=== PATIENT | female | born 1950 | race Caucasian/White ===

== ENCOUNTER 2016-08-11 22:02 | Inpatient (IN) | payer MEDICARE, OTHER ==
[~2016-08-11] VITALS: Ht 154.9 cm; Wt 78.9 kg
[2016-08-11 22:17] LABS: BASOPHILS % (AUTO) 0.6 % (0-3); EOSINOPHILS % (AUTO) 3.2 % (0-5); Mean Corpuscular Hemoglobin 30.7 pg (27.0-35.0); Mean Corpuscular Volume 97.9 fL (81-100); NEUTROPHILS % (AUTO) 38.5 % (40-74); Platelet Count 474 bil/L (150-400)
[2016-08-11] MEDS ORDERED: 0.9% Sodium Chloride 1,000 ML IV ONE (22:21)
--- NOTE | 2016-08-11 22:21 | ABG ---
DateTimeAnalyzed 22:14:00 -_ pH ____7.074 - 7.350 7.450 pCO2 ___91.6__ -mmHg 35.0 45.0 pO2 134 -mmHg 69.0 116 HCO3- ___25.5__ -mmol/L 22.0 26.0 ABE ___-6.5__ -mmol/L -2.0 2.0 tHb ___11.7__ -g/dL O2Hb ___95.2__ -% COHb ____0.0__ -% MetHb ____1.5__ -% sO2 ___96.7__ -% FIO2 ___48.0__ -% Drawn By MM - Date/Time Notified____ 22:21:00 -_ Spontaneous_RR ___24.0__ -b/min Liter_Flow ____7.0__ -L/min Oxygen Device 1 NEBULIZER - Notified By MM - Notified Whom LEIBRANDT, KIERAN -___ B 761 -mmHg tO2 ___15.8__ -Vol% Dino test N/A -
[2016-08-11] MEDS ORDERED: levoFLOXacin Inj 750 MG in IV Premix 1 EACH IV ONE (22:25)
[2016-08-11] MEDS ORDERED: MethylprednisoLONE Sodium Succinate 62.5 mg/mL 2 mL Inj IVPUSH ONE (22:25)
[2016-08-11] MEDS ORDERED: Albuterol-Ipratropium 3 mL Inhalation Solution NEB ONE (22:25)
[2016-08-11 22:26] VITALS: BP 160/112; PULSE 139; RESP 26; O2SAT 96
--- NOTE | 2016-08-11 22:27 | ED.REPORT ---
HPI-General Illness Date of Service Aug 11, 2016 ED Provider: Gerardo Ventura MD A 65 year old female with a history of COPD and hypertension is brought to the ED via EMS due to respiratory distress. The pt has reportedly been experiencing difficulty breathing for several hours until her family called paramedics. Paramedics found her fatigued with a pulse oximetry of 50% on room air and a high CO2 concentration. She was placed on a continuous 100% albuterol nebulizer and her oxygen saturation increased to 99%. History is limited by pt condition. Nursing Notes Stated Complaint: RESPIRATORY DISTRESS Chief Complaint: Critical Care/Intubated Nursing Notes Reviewed: Yes Allergies: Coded Allergies: No Known Allergies (Unverified , 08/12/16) General Time Seen by MD: 22:07 Chief Complaint Other (Respiratory distress) Hx Obtained From: EMS Arrived By: Ambulance Sudden in Onset?: No Onset Occurred: 5 - 8 hours ago Symptom Duration: Since onset Recent Healthcare: No recent hospitalization, Recent doctor visit Similar Sx Previous: Yes Past Medical History Past Medical History Notes: No medical allergies Past Medical History Reports: COPD, Hypertension Past Surgical History Reports: Appendectomy, , Cholecystectomy Smoking History Former Smoker Social History She does smoke E-cigarettes Drug Use: Denies drug use Other Social History: Local resident Ambulatory Status Independent Review of Systems Unable to Obtain ROS Patient condition Physical Exam Constitutional: Diaphoretic, elderly female sitting up in bed in obvious respiratory distress. Head: Normocephalic and atraumatic. Mouth/Throat: Oropharynx is clear and moist. No oropharyngeal exudate. Eyes: Pupils are equal, round, and reactive to light. Neck: Supple, no tracheal deviation. Cardiovascular: Tachycardic, regular rhythm. Equal and intact distal pulses throughout. Good peripheral pulses and cap refill. Pulmonary/Chest: Respiratory distress with marked accessory muscle use. Breath sounds are present bilaterally, however she is not moving very much air. Abdominal: Soft. No distension. There is no tenderness to palpation, rebound, or guarding. Bowel sounds present. Musculoskeletal: Range of motion grossly intact, moving all extremities. 1+ edema to bilateral lower extremities. Neurological: GCS of 9. Is moving all extremities and has normal tone. Withdrawing from pain. Skin: Warm and moist, no rashes or pallor appreciated. Psychiatric: Unable to obtain secondary to pt condition. Vital Signs Vital Signs Date Time Temp Pulse Resp B/P Pulse Ox O2 Delivery O2 Flow Rate FiO2 08/11/16 23:38 129 27 106/54 94 BiPAP 8 08/11/16 22:36 140 29 122/83 98 BiPAP 08/11/16 22:33 136 24 95 BiPAP 28 08/11/16 22:30 24 96 35 08/11/16 22:26 36.9 139 26 160/112 96 Simple Mask 8 Initial VS: Reviewed Interpretation & Diagnostics Lab Results Interpretation Result Diagram: 08/11/16220908/11/162209 Test 08/11/16 22:10 White Blood Count 18.2th/mm3 (3.8-10.1) Red Blood Count 3.84mil/mm3 (3.90-5.20) Hemoglobin 11.8g/dL (12.0-15.6) Hematocrit 37.6% (35.0-46.0) Mean Corpuscular Volume 97.9fL (81-100) Mean Corpuscular Hemoglobin 30.7pg (27.0-35.0) Mean Corpuscular Hemoglobin Concent 31.4% (32.0-37.0) Red Cell Distribution Width 13.7% (12.3-15.4) Platelet Count 474bil/L (150-400) Neutrophils (%) (Auto) 38.5% (40-74) Lymphocytes (%) (Auto) 47.0% (14-46) Monocytes (%) (Auto) 10.0% (4-12) Eosinophils (%) (Auto) 3.2% (0-5) Basophils (%) (Auto) 0.6% (0-3) Prothrombin Time 10.6sec (8.1-12.5) Prothromb Time International Ratio 0.99ratio Sodium Level 137mEq/L (134-144) Potassium Level 5.1mEq/L (3.5-5.2) Chloride Level 101mEq/L (97-108) Carbon Dioxide Level 23mmol/L (18-29) Blood Urea Nitrogen 24mg/dL (8-27) Creatinine 1.12mg/dL (0.57-1.00) Estimat Glomerular Filtration Rate 70mL/min (>59) Glucose Level 176mg/dL (60-99) Calcium Level 9.5mg/dL (8.5-10.1) Magnesium Level 2.2mg/dL (1.6-2.6) Total Bilirubin 0.2mg/dL (0.0-1.2) Aspartate Amino Transf (AST/SGOT) 22U/L (0-50) Alanine Aminotransferase (ALT/SGPT) 19U/L (0-32) Alkaline Phosphatase 107U/L (25-165) Troponin T 0.010ug/L (0.0-0.011) Pro-B-Type Natriuretic Peptide 176.0pg/mL (0-301) Total Protein 7.4g/dL (6.4-8.4) Albumin 4.0g/dL (3.4-5.0) Hold Fox Top Tube Received (Received) Lab Results Interpretation: ABG: pH 7.074/pCO2 92/pO2 134.0/cHCO3- 25.5/cBase -6.5 ECG Interpretation ECG Interpretation: sinus tachycardia with a rate of 141 Time: 22:10 Interpreted by: ED physician X-Ray Chest Interpretation Chest Xray Interpretation: hyperinflated lungs patchy opacities at the right lung base Interpretation / Wet Read by: Wet read ED physician Re-Eval/Medical Decision Med Decision/Clinical Course 65-year-old female with a competent past medical history including COPD presenting to the ED for evaluation of acute respiratory distress. Upon arrival , patient's GCS is 9, markedly respiratory distress with accessory muscle use. Patient's supplemental oxygen turned down so as to improve ventilation. Unable to obtain significant history from the patient upon arrival secondary to her condition. Patient's blood gas demonstrates respiratory acidosis. Considered intubation, however after application of BiPAP, patient's clinical condition improved significantly. Patient started on Levaquin and given methylprednisone. Plan admission to the ICU for further management and evaluation of this critically ill patient Source of Hx: Old records Time of Eval: 22:52 Patient Status: Condition improved Re-Evaluation/Progress Note: Pt rechecked, whose condition has significantly improved. Pt is interactive and answering questions with a GCS of 15. The need for admission is discussed. The pt understands and agrees with the plan. All questions are addressed at this time. Consultation : Referral / Consult Name: Talya Rosenberg DO Consulted With: Hospitalist Call Returned at: 23:08 Dry Wall Installer: Agrees with eval, Agrees with plan, Accepts admit Note: Spoke with Dr. Rosenberg, hospitalist, regarding pt's case. Dr. Rosenberg agrees with the evaluation and agrees to admit the pt. Counseled Regarding: Diagnosis, Lab results, Need for admission Discharge & Departure Primary Impression: Acute hypercapnic respiratory failure Additional Impression: COPD exacerbation Disposition: ADMITTED TO HOSPITAL Discharge Condition All VS Reviewed: Yes Condition: Stable Referrals: [facility] Crit Care Except Billable Proc Time Spent: 75-104 minutes Services Performed: Patient management by me, Time spent at bedside, Reviewing test results, Reviewing imaging, Discussing patient care, Documentation in record Critical Care Notes: Please see MDM Scribe Attestation Portions of this note were transcribed by Jana Hernandez. I, Dr. Ventura personally performed the history, physical exam and medical decision-making; I reviewed and confirmed the accuracy of the information in the transcribed note. Signed by: Elder Bravo, 08/11/2016 and 2348. copies to: [facility] Gerardo Ventura MD Aug 11, 2016 22:27 JANA HERNANDEZ Aug 11, 2016 22:48
[2016-08-11 22:30] VITALS: RESP 24; O2SAT 96
[2016-08-11 22:33] VITALS: PULSE 136; RESP 24; O2SAT 95
[2016-08-11 22:36] VITALS: BP 122/83; PULSE 140; RESP 29; O2SAT 98
[2016-08-11 22:39] LABS: TROPONIN T 0.01 ug/L (0.0-0.011)
[2016-08-11 22:41] LABS: INR 0.99 ratio
[2016-08-11] MEDS ORDERED: Alum-Mag Hydrox-Simeth 30 mL Suspension PO PRN (23:20)
[2016-08-11] MEDS ORDERED: Senna-Docusate 8.6-50 mg Tablet PO PRN (23:20)
[2016-08-11] MEDS ORDERED: Ondansetron 2 mg/mL 2 mL Inj IVPUSH PRN (23:20)
[2016-08-11] MEDS ORDERED: Polyethylene Glycol (PEG) 17 Gm Powder PO PRN (23:20)
[2016-08-11] MEDS ORDERED: Albuterol 2.5 mg/3 mL Inhalation Solution NEB PRN (23:25)
--- NOTE | 2016-08-11 23:37 | PCM.HPMED ---
Subjective Date of Service Aug 11, 2016 Primary Provider: Admitting Physician: Primary Care Physician: Steven Attending Physician: Admit Status: From the Emergency Department Chief Complaint: unable to breath History of Present Illness: 65yoF with past medical history of COPD and HTN admitted with hypercapnic respiratory failure secondary to COPD exacerbation with imaging on presentation concerning for community acquired pneumonia. Patient states that over the past 2-3 days she has become more short of breath. Her normal ADLs have been severely compromised and she is unable to walk throughout her house or even get dressed before becoming winded. She notes that when she becomes short of breath she immediately has to sit down for up to 5 minutes before she can continue with her routine. She denies lightheadedness , dizziness, productive cough, fevers, chills, orthopnea, PND, chest pain, chest tightness, recent ill contacts. An increase of albuterol has been noted with regular use being 3 times per day and over the past 2-3 days 4-5 times per day. Mrs. Martin lives adjacent to her family who came with her to [facility] for further evaluation. On presentation patient was noted to have ABG with pH 7.041, pCO2 91.6, [id number] with high level oxygen administration en route to hospital. Bipap was started in ED with improvement in mentation. Bipap was weaned when transitioned to the floor however was restarted when patient became increasingly SOB with movement. Review of Systems: complete review of systems obtained. positive as per HPI otherwise negative. Allergies Coded Allergies: No Known Allergies (Unverified , 08/12/16) Home Medications Family brought in medications. They note that most of medications are with them however some may have been left behind at home. Recent changes to medication include discontinuation of PING and initiation of losartan Medication rec has not been completed on admission - please confirm medications when complete and order as appropriate Losartan 25mg daily Cetirizine 10mg daily Sertraline 50mg daily Symbicort proair spiriva PMH COPD HTN Depression / Anxiety Surgical History Appendectomy Cholecystectomy Family History Mother: long term care social worker tobacco use, COPD Social History Occupation: retired Hx Alcohol Use: No Hx Substance Use: No Smoking Status: Former Smoker Living Arrangement: with Family Exam Vital Signs Vital Sign - Last Date Time Temp Pulse Resp B/P Pulse Ox O2 Delivery O2 Flow Rate FiO2 08/11/16 22:36 140 29 122/83 98 BiPAP 08/11/16 22:33 28 08/11/16 22:26 36.9 8 Exam General: Alert, Oriented X3, Cooperative, No acute Distress, breathing well on bipap, able to speak in full sentences Eyes: PERRLA, Scleral Anicteric Mouth: Mouth Normal, Mucous Membranes dry Neck: Supple, no Thyromegaly, trachea central. Chest & Lungs: No adventitious breath sounds, no crackles, no wheeze, poor inspiration Cardiovascular: Normal S1, Normal S2, distant, Regular Rate/Rhythm, (No JVD, no peripheral edema) Pulses: Radial (present and equal), Dorsalis Pedi (present and equal) Abdomen: Soft, Non-tender, Non-distended, Normoactive bowel tones. Musculoskeletal: Unremarkable. Normal range of motion, no swollen or erythematous joints Extremities: No edema, no cyanosis, no clubbing. Skin: No rashes. Warm and dry, no erythematous areas Neurological: Grossly neurologically intact, has generalized weakness, Normal Speech, Sensation Intact Lymphatic: Lymph nodes Cervical and Axillary not palpable. Lab and Diagnostics Result Diagram: 08/11/16220908/11/162209 X-Rays, CTs and MRIs PATIENT NAME: KENDALL MARTIN MR#: [id number] LOCATION: [facility] ORDERING PHYS: Alvaro Romero PA-C DATE OF SERVICE: 11/28/15 1400 PROCEDURE: X-RAY CHEST, TWO VIEWS ([id number]) INDICATIONS: COPD WITH ACUTE EXACERBATION TECHNIQUE: 2 views of the chest were acquired. COMPARISON: [facility], CR, XR CHEST 1VW (PORTABLE), 03/13/2015, 9: 46. FINDINGS: Surgical changes and devices: None. Lungs and pleura: Increased opacity is seen in the medial aspect of the right lower lung field. Pulmonary vasculature is distinct from distorted. Mediastinum: Mediastinal contours are normal. Heart size is normal. Bones and chest wall: No suspicious bony abnormalities. Soft tissues appear unremarkable. IMPRESSION: COPD. Right middle lobe atelectasis and possible infiltrate. Recommend followup chest x-ray to ascertain resolution. Dictated by: Trang Oquendo M.D. on 11/28/2015 at 16:19 Approved by: Trang Oquendo M.D. on 11/28/2015 at 16:19 Assessment & Plan 65yoF with past medical history of COPD and HTN admitted with hypercapnic respiratory failure secondary to COPD exacerbation with imaging on presentation concerning for community acquired pneumonia. Sepsis, acute, POA -patient with WBC >12, HR>90 -likely source pulmonary, community acquired PNA -treatment as below Respiratory distress with hypercapnia, acute, POA -secondary to COPD exacerbation -presenting ABG pH 7.024, pCO2 91.6, pO2 134 -treatment as below COPD exacerbation, acute, POA -125mg methylpred given in ED, levofloxacin given in ED - continue methylpred 125mg q6hr x1-2 days given severity of illness then transition to prednisone - continue levofloxacin 750mg qHS - albuterol-ipratropium q4HR, albuterol q2HR PRN - continue BIPAP, ABG PRN worsening clinical status - quality assurance at [facility]. Most recent visit the week prior to admission - obtain records from [facility] Pulmonology [place], acute, POA -no known history of kidney disease -baseline creatinine unknown -most likely prerenal -repeat BMP in am, urine lytes if remains elevated Community acquired pneumonia, acute, POA - imaging reviewed on admission by admitting team, possible right middle lobe infiltrate - continue levofloxacin, low threshold to broaden abx, if acute clincal decline - admit to CCU to closely monitor respiratory/clinical status Elevated glucose, acute, POA -no history of diabetes -hgba1c added on to presenting labs -may require SSI given steroid use HTN, chronic -patient with history of hypertension -med rec not completed on admission -PRN antihypertensive until med rec completed, patient currently normotensive Depression / Anxiety, chronic, POA -continue home sertraline 50mg daily Pain Evaluation: Adequate Pain Control GI Prophylaxis: Not indicated VTE Prophylaxis: Sub-Q Heparin (Unfractionated) Resuscitation Status: CPR: Attempt Resuscitation Talya Rosenberg DO Aug 11, 2016 23:37
[2016-08-11 23:38] VITALS: BP 106/54; PULSE 129; RESP 27; O2SAT 94
[2016-08-12] VITALS (17 sets, daily range): BP systolic 89–122; BP diastolic 53–82; PULSE 103–132; RESP 16–28; O2SAT 91–96
[2016-08-12] MEDS: Albuterol-Ipratropium 3 mL Inhalation Solution NEB SCH ×6 (00:44→20:56)
[2016-08-12] MEDS: MethylprednisoLONE Sodium Succinate 62.5 mg/mL 2 mL Inj IVPUSH SCH ×3 (02:06→14:05)
[2016-08-12] MEDS ORDERED: CETI5TAB28 PO (02:43)
[2016-08-12] MEDS ORDERED: LOSA25TA21 PO (02:45)
[2016-08-12] MEDS ORDERED: SERT20OR PO (02:46)
[2016-08-12] MEDS ORDERED: TIOT4MIS5 IH (02:49)
[2016-08-12] MEDS ORDERED: SYMINH INHALATION (02:51)
[2016-08-12] MEDS ORDERED: ALBU8.5H2 INHALATION (02:55)
[2016-08-12 05:37] LABS: Mean Corpuscular Hemoglobin 30.8 pg (27.0-35.0); Mean Corpuscular Volume 96.7 fL (81-100)
--- NOTE | 2016-08-12 05:41 | NUR ---
admit note pt admitted from er to ccu room 2018 at 0015, admit info done per pt's info, pt a/o times three, sob with exertion, ls- decreased t/o, intermittent wheezes, .28 fio2 on bipap, sats mid 90's, resp rate=teens to low 20's, pt became quite sob when transfering from [facility] to bed, pt placed back on bipap in ccu room after being transported from er on nc, mrsa swab sent to lab, no sputum to send to lab, tele= st, hr down from 130's on admit to 105 range, bp low normal, afebrile, denies n/v denies cp denies pain hnv==no urine spec to lab, pts belongings and meds sent home with pt's daughter, see ccu flow sheet, Addendum: 08/12/16 at 0648 by GLENIS SOLANO RN md aware of lactic acid results this am, pt hnv since admit at 0015, 500ml ns bolus started, repeat lactic ordered,
[2016-08-12 06:04] LABS: Magnesium 1.8 mg/dL (1.6-2.6)
[2016-08-12] MEDS ORDERED: 0.9% Sodium Chloride 500 ML IV ONE (06:45)
[2016-08-12] MEDS ORDERED: Heparin 5,000 Unit/mL Inj SUBQ SCH (08:30)
--- NOTE | 2016-08-12 08:59 | PCM.PNMED ---
Subjective Date of Service Aug 12, 2016 Subjective This is a 65 year old female with COPD who presented in respiratory distress with a PC02 of 91 requiring BIPAP. Today, patient is doing remarkably well. She is alert and oriented x3. She states she is feeling much improved. She continues on bipap. Review of systems is otherwise negative. Exam Vital Signs Vital Sign - Last Date Time Temp Pulse Resp B/P Pulse Ox O2 Delivery O2 Flow Rate FiO2 08/12/16 08:32 103 08/12/16 04:32 17 95/57 95 28 08/12/16 04:00 36.7 BiPAP 08/12/16 00:12 8 Intake and Output 08/11/16 08/11/16 08/12/16 Cumulative From/Thru 15:00 23:00 07:00 08/11/16 22:26 - 08/12/16 06:30 Intake Total 1000 ml 240 ml 1240 ml Output Total 0 ml 0 ml Balance 1000 ml 240 ml 1240 ml Intake Oral 240 ml 240 ml IV Total 1000 ml 1000 ml Output Urine Total 0 ml 0 ml # Bowel Movements 0 0 Exam General: Alert, Oriented X3, Cooperative, No acute Distress, able to speak in full sentences Eyes: PERRLA, Scleral Anicteric Mouth: Mouth Normal, Mucous Membranes dry Neck: Supple, no Thyromegaly. Chest & Lungs: No crackles, positive wheeze. Decreased breath sounds bilaterally. Cardiovascular: Normal S1, Normal S2, distant, Regular Rate/Rhythm, (No JVD, no peripheral edema) Abdomen: Soft, Non-tender, Non-distended, Normoactive bowel tones, obese Musculoskeletal: Unremarkable. Normal range of motion, Extremities: Trace edema bilaterally. Skin: No rashes. Warm and dry, no erythematous areas Neurological: Grossly neurologically intact, has generalized weakness, Normal Speech, Sensation Intact IVs and Medications Medications Reviewed: Medications were reviewed in detail Lab and Diagnostics Result Diagram: 08/12/16 0530 08/12/16 0530 X-Rays, CTs and MRIs Chest xray on 08/11/2016: IMPRESSION: Bibasilar scarring with superimposed patchy airspace opacity suspicious for pneumonia. Continued radiographic surveillance to resolution is recommended. Dictated by: Bruno Henriquez RRA Interpreted: Rush Felton MD on 08/12/2016 at 9:46 Assessment & Plan 65yoF with past medical history of COPD and HTN admitted with hypercapnic respiratory failure secondary to likely COPD exacerbation. Sepsis, acute, POA -patient with WBC >12, HR>90 -likely source pulmonary, community acquired PNA. -treatment as below -Lactic acid has corrected to normal after fluid boluses. Respiratory distress with hypercapnia, acute, POA -secondary to COPD exacerbation -presenting ABG pH 7.024, pCO2 91.6, pO2 134. Repeat ABG shows improvement. -Off bipap. Elevated troponin, not present on admission, ongoing: -Troponin on admit .010. Repeat tropoin .256. -Cardiology is consulting. -Echo pending. -Heparin started. COPD exacerbation, acute, POA -125mg methylpred given in ED, levofloxacin given in ED -Prednisone 40mg PO daily. - continue levofloxacin 750mg qHS - albuterol-ipratropium q4HR, albuterol q2HR PRN. Continue home symbicort. -Patient off bipap. CLIFT[place], acute, POA -no known history of kidney disease -baseline creatinine unknown -most likely prerenal -Fluid bolus. -Will start NS at 75ml/hr. Community acquired pneumonia, acute, POA - Chest xray: Bibasilar scarring with superimposed patchy airspace opacity suspicious for pneumonia. - Continue Levaquin. - Transferred out of CCU as patient has clinical improvement. -Blood cultures, sputum culture, legionella ag ur, strep pneumo ag urine, viral pcr panel all pending. Elevated glucose, acute, POA -Likely secondary to steroid -hgba1c added on to presenting labs HTN, chronic -Patient blood pressures have been low 100's. -Hold home bp med losartan for now. Depression / Anxiety, chronic, POA -continue home sertraline 50mg daily DVT prophylaxis: patient on heparin for elevated trops. Pain Evaluation: Adequate Pain Control GI Prophylaxis: Not indicated VTE Prophylaxis: Sub-Q Heparin (Unfractionated) Resuscitation Status: CPR: Attempt Resuscitation Attending Statement The patient was seen and examined together with Dr. Rivera on 08/12/16 and I have added additional information to the note above. Harjit Rivera DO Aug 12, 2016 08:59 Alpa Emery DO Aug 13, 2016 17:33
--- NOTE | 2016-08-12 09:48 | DRSVH ---
PROCEDURE: X-RAY CHEST ONE VIEW, PORTABLE ([id number]) INDICATIONS: dyspnea TECHNIQUE: One view of the chest was acquired. COMPARISON: [facility], CR, XR CHEST 1VW (PORTABLE), 08/12/2016, 9:35. [facility], CR, XR CHEST 1VW (PORTABLE), 03/13/2015, 9:46. [facility], CR, XR CHEST 2VW, 05/2015, 13:54. FINDINGS: Surgical changes and devices: None. Lungs and pleura: No pleural effusions or pneumothorax. Bibasilar scarring redemonstrated there is been interval increase in patchy airspace opacity superimposed involving the lung bases suggesting pn eumonia. Mediastinum: Mediastinal contours appear normal. Heart size is normal. Bones and chest wall: No suspicious bony lesions. Overlying soft tissues appear unremarkable. IMPRESSION: Bibasilar scarring with superimposed patchy airspace opacity suspicious for pneumonia. Co ntinued radiographic surveillance to resolution is recommended. Dictated by: Bruno Henriquez RRA Interpreted: Rush Felton MD on 08/12/2016 at 9:46 Transcribed by: LAURA on 08/12/2016 at 9:47 Approved by: Rush Felton M.D. on 08/13/2016 at 8:10
[2016-08-12] MEDS: 0.9% Sodium Chloride 1,000 ML IV ONE ×2 (10:02→12:10)
[2016-08-12] MEDS ORDERED: Heparin 5,000 Unit/mL Inj IVPUSH PRN ×2 (10:20→10:35)
[2016-08-12] MEDS ORDERED: Heparin 25K Unit/500mL 0.45 NS 25,000 UNIT in IV Premix 1 EACH IV SCH ×2 (10:20→10:35)
--- NOTE | 2016-08-12 10:24 | ABG ---
DateTimeAnalyzed 10:09:10 -_ pH ____7.364 - 7.350 7.450 pCO2 ___35.6__ -mmHg 35.0 45.0 pO2 ___88.0__ -mmHg 69.0 116 HCO3- ___20.3__ -mmol/L 22.0 26.0 ABE ___-4.6__ -mmol/L tHb ___10.7__ -g/dL O2Hb ___95.2__ -% COHb ____0.0__ -% 1.5 MetHb ____0.5__ -% sO2 ___95.5__ -% FIO2 ___28.0__ -% Pressure_Support ___12.0__ -cmH2O CPAP ____5.0__ -cmH2O Set_RR 12 -b/min Vt __900.0__ -L Drawn By GJ - Date/Time Notified____ 10:19:00 -_ Spontaneous_RR 18 -b/min Oxygen Device 1 ____BIPAP - Notified By GJ - Notified Whom ___DR. JJ - K+ ____4.7__ -mmol/L tO2 ___14.4__ -Vol% Dino test _Positive -
--- NOTE | 2016-08-12 13:07 | ABG ---
DateTimeAnalyzed 12:59:35 -_ pH ____7.371 - 7.350 7.450 pCO2 ___33.9__ -mmHg 35.0 45.0 pO2 ___62.9__ -mmHg 69.0 116 HCO3- ___19.6__ -mmol/L 22.0 26.0 ABE ___-5.2__ -mmol/L tHb ____9.6__ -g/dL O2Hb ___91.0__ -% COHb ____0.0__ -% 1.5 MetHb ____0.3__ -% sO2 ___91.3__ -% FIO2 ___22.0__ -% Drawn By gj - Date/Time Notified____ 13:07:00 -_ Spontaneous_RR 20 -b/min Liter_Flow ____0.50_ -L/min Oxygen Device 1 __CANNULA - Notified By gj - Notified Whom ___DR. ZAMBRANO - K+ ____4.2__ -mmol/L tO2 ___12.3__ -Vol% Dino test _Positive -
--- NOTE | 2016-08-12 13:54 | NUR ---
Social Work: Initial Assessment D: Per EMR review, pt is a 65 year old female admitted for acute hypercapnic respiratory failure. Pt is [employer] Medicare Complete HMO; Pt has no LTC insurance or VA benefits. PCP is Dr. Hurley at the [facility] in [place]. NOK is Micaela Merlos, dtr, . Advanced directives information provided by INTERNATIONAL SALES REPRESENTATIVE. No RA score entered at this time. INTERNATIONAL SALES REPRESENTATIVE met with patient at bedside. Sw role explained and contact info provided. See initial assessment. Pt lives in [place] with her family. Pt lives in an attached studio apartment with 2 steps to enter. Pt uses no DME, drive and is I with all ADLs. Pt has never had HH or skilled rehab. Pt anticipates discharge home with family to transport. Pt is 1PA. A: Pt who is I at baseline. P: Anticipate pt to discharge home when medically stable; INTERNATIONAL SALES REPRESENTATIVE to continue to follow to assess for discharge needs. R/o possible home health. KATERINA Feldman Addendum: 08/12/16 at 1358 by BRYANT MARCUM Amended: Links added.
[2016-08-12] MEDS: 0.9% Sodium Chloride 1,000 ML IV SCH (14:05)
--- NOTE | 2016-08-12 14:28 | PCM.CHPCAR ---
Consult Subjective Date of service Aug 12, 2016 Date of admit Aug 11, 2016 at 23:40 Provider Requesting Consult Requesting Provider: Harjit Rivera DO Primary Care Physician Primary Care Physician: Other,Physician Chief Complaint Shortness of breath History of Present Illness This is a 65-year-old female with a past medical history of COPD, hypertension, mild hyperlipidemia with recent admission for hypercapnic respiratory failure is most likely secondary to COPD exacerbation. The patient had serial troponins performed which showed positive troponins hence I was asked to consult on the patient. The patient denies any shortness of breath over the past few days until last night she has sudden onset of shortness of breath. She had more severe auto but wheezing and she does not recall much when she was transported by ambulance to the emergency room. In the emergency room she was treated for her COPD exacerbation and her symptoms improve. She denies any history of chest tightness, orthopnea, PND, near syncope, syncope, or palpitations. The patient felt like she also had acute onset of anxiety during the episode. Her ABG on presentation showed a pH of 7.041, PCO2 91.6, PO2 134 on high-level oxygen. BiPAP was started in the emergency room with improvement in mentation. She is currently not using BiPAP. She appears to be comfortable sitting on the edge of the bed and is able to complete sentences without much difficulty. An echocardiogram is pending. The patient denies any prior history of cardiology workup. She sees a strategic business development at [facility] in [place]. Review of Systems General: Denies: Change in exercise capacity Energy Fatigue Eyes: Denies: Problem or recent change in eyes Ears, Nose, Mouth & Throat: Denies: Any hearing loss Epistaxis or hoarseness Respiratory: Reports: Significant dyspnea Denies: Orthopnea or PND Cardiovascular: Reports: Palpitations Denies: Chest Discomfort Gastrointestinal: Denies: Recent melena or hematochezia Ulcers or GI blood loss Genitourinary: Denies: Frequency Urinary symptoms Musculoskeletal: Denies: Significant myalgias Neurological: Denies: Any history of stroke/TIA symptoms Psychiatric: Reports: Anxiety Denies: Depression Endocrine: Denies: Heat or cold intolerance Polyuria or Polydipsia Integumentary: Denies: Any change in hair or nails Any rash or skin lesions Hematologic/Immunologic: Denies: Recent history of anemia Unusual bruising or bleeding PMH Past Medical History COPD HTN Depression / Anxiety Hyperlipidemia Bedside Blood Glucose: 157 Scheduled Budesonide/Formoterol 160-4.5 mcg Inh (Symbicort 160-4.5 mcg Inh) 120 Puff Inhaler 2 PUFF INHALATION DAILY (Reported) Cetirizine (Cetirizine) 5 Mg Tablet 10 MG PO DAILY (Reported) Losartan Potassium (Losartan Potassium) 25 Mg Tablet 25 MG PO DAILY (Reported) Sertraline HCl (Zoloft) 20 Mg/1 Ml Oral.conc 25 MG PO DAILY (Reported) Tiotropium [place] (Spiriva Respimat) 1.25 Mcg/Actuation Mist.inhal 4 GM IH DAILY (Reported) Scheduled PRN Albuterol HFA (Proair HFA) 8.5 Gm Hfa.aer.ad 2 PUFFS INHALATION DIRECTED PRN PRN For Shortness of Breath (Reported) Current Inpatient Medications Current Medications Ondansetron HCl 4 to 8 mg Q4H PRN IVPUSH; Start 08/11/16 at 23:20 Acetaminophen 650 mg Q4H PRN PO Last administered on 08/12/16 02:18; Admin Dose 650 MG; Start 08/11/16 at 23:20 Senna 2 tablet BID PRN PO; Start 08/11/16 at 23:20 Al Hydrox/Mg Hydrox/Simethicone 30 ml Q6H PRN PO; Start 08/11/16 at 23:20 Polyethylene Glycol 17 gm DAILY PRN PO; Start 08/11/16 at 23:20 Heparin Sodium (Porcine) 5,000 unit Q8 SUBQ Last administered on 08/12/16 09:56 ; Admin Dose 5,000 UNIT; Start 08/12/16 at 08:30; Stop 08/12/16 at 10:33; Status DC Methylprednisolone Sodium Succinate 125 mg Q6 IVPUSH Last administered on 14:05; Admin Dose 125 MG; Start 08/12/16 at 02:30 Albuterol/ Ipratropium 3 ml Q4 NEB Last administered on 08/12/16 09:47; Admin Dose 3 ML; Start 08/12/16 at 00:30 Albuterol 2.5 mg 2.5 mg Q2H PRN NEB; Start 08/11/16 at 23:25 Levofloxacin/ Dextrose/Premix 150 ml @ 100 mls/hr HS IV; Start 08/12/16 at 21: 00 Sertraline HCl 50 mg DAILY PO Last administered on 08/12/16 09:56; Admin Dose 50 MG; Start 08/12/16 at 08:30 Heparin Sodium (Porcine) Per Protocol for a... PRN PRN IVPUSH; Start 08/12/16 at 10:20; Stop 08/12/16 at 10:33; Status DC Heparin Sodium (Porcine) Per Protocol for a... PRN PRN IVPUSH; Start 08/12/16 at 10:35 Sodium Chloride 1,000 ml @ 75 mls/hr [id number] IV Last administered on 08/12/16 14:05; Admin Dose 75 MLS/HR; Start 08/12/16 at 13:30 Allergies: Coded Allergies: No Known Allergies (Unverified , 08/12/16) Family History Family History Mother: nursing home tobacco use, COPD Social History Occupation: retired Hx Alcohol Use: NoHx Substance Use: No Smoking Status: Former Smoker Living Arrangement: with Family Exam Vital Signs Vital Sign - Last Date Time Temp Pulse Resp B/P Pulse Ox O2 Delivery O2 Flow Rate FiO2 08/12/16 12:02 36.7 106 18 89/53 93 Nasal Cannula 2.00 08/12/16 09:47 28 Intake and Output 08/11/16 08/11/16 08/12/16 Cumulative From/Thru 14:59 22:59 06:59 08/11/16 22:26 - 08/12/16 06:30 Intake Total 1000 ml 240 ml 1240 ml Output Total 0 ml 0 ml Balance 1000 ml 240 ml 1240 ml Intake Oral 240 ml 240 ml IV Total 1000 ml 1000 ml Output Urine Total 0 ml 0 ml # Bowel Movements 0 0 General: Pleasant Cooperative Skin: Warm & dry to touch Head: Normocephalic Eye: EOMS intact No arcus or xanthelasma Neck: Nuchal obesity:JVP assess difficult Ears, Nose & Throat: Ears no gross abnormalities Nose no gross abnormalities Throat no gross abnormalities Chest: Expiratory wheezes Cardiac: Regular rhythm Normal S1 and S2 No S3 or S4 No murmurs Pulses: Pulses full/equal all extremities Abdomen: Soft, non-distended, non-tender Obese Lymphatic: No palpable lymphadenopathy Extremities: Warm w/o deformities,erythema noted Neurological: Alert & oriented No gross motor or sensory deficits Psychological: Affect & interaction appropriate Memory grossly intact Lab and Diagnostics Labs CBC Test 08/11/16 22:10 08/12/16 05:30 Neutrophils (%) (Auto) 38.5% (40-74) Lymphocytes (%) (Auto) 47.0% (14-46) Monocytes (%) (Auto) 10.0% (4-12) Eosinophils (%) (Auto) 3.2% (0-5) Basophils (%) (Auto) 0.6% (0-3) White Blood Count 6.5th/mm3 (3.8-10.1) Red Blood Count 3.38mil/mm3 (3.90-5.20) Hemoglobin 10.4g/dL (12.0-15.6) Hematocrit 32.7% (35.0-46.0) Mean Corpuscular Volume 96.7fL (81-100) Mean Corpuscular Hemoglobin 30.8pg (27.0-35.0) Mean Corpuscular Hemoglobin Concent 31.8% (32.0-37.0) Red Cell Distribution Width 13.6% (12.3-15.4) Platelet Count 282bil/L (150-400) CMP Test 08/11/16 22:10 08/12/16 05:30 08/12/16 09:05 Total Bilirubin 0.2mg/dL Aspartate Amino Transf (AST/SGOT) 22U/L Alanine Aminotransferase (ALT/SGPT) 19U/L Alkaline Phosphatase 107U/L Pro-B-Type Natriuretic Peptide 176.0pg/mL Total Protein 7.4g/dL Albumin 4.0g/dL Hold Fox Top Tube Received Sodium Level 138mEq/L Potassium Level 4.8mEq/L Chloride Level 104mEq/L Carbon Dioxide Level 19mmol/L Blood Urea Nitrogen 27mg/dL Creatinine 1.21mg/dL Estimat Glomerular Filtration Rate 64mL/min Glucose Level 203mg/dL Calcium Level 9.1mg/dL Phosphorus Level 3.0mg/dL Magnesium Level 1.8mg/dL Total Creatine Kinase 88U/L Creatine Kinase MB 7.3ng/mL Creatine Kinase MB % 8.3% Troponin T 0.256ug/L Procalcitonin 0.41ng/mL Lactic Acid Level 3.3mmol/L Result Diagram: 08/12/1630 08/12/1630 X-Rays, CTs and MRIs Date of Service: 08/11/161 Caution: Report not yet finalized and possibly incomplete! PROCEDURE: X-RAY CHEST ONE VIEW, PORTABLE ([id number]) INDICATIONS: dyspnea TECHNIQUE: One view of the chest was acquired. COMPARISON: [facility], CR, XR CHEST 1VW (PORTABLE), 03/13/2015, 9: 46. [facility], CR, XR CHEST 2VW, 11/28/2015, 13:54. FINDINGS: Surgical changes and devices: None. Lungs and pleura: No pleural effusions or pneumothorax. Bibasilar scarring redemonstrated there is been interval increase in patchy airspace opacity superimposed involving the lung bases suggesting pneumonia. Mediastinum: Mediastinal contours appear normal. Heart size is normal. Bones and chest wall: No suspicious bony lesions. Overlying soft tissues appear unremarkable. IMPRESSION: Bibasilar scarring with superimposed patchy airspace opacity suspicious for pneumonia. Continued radiographic surveillance to resolution is recommended. 12-lead ECG Normal sinus rhythm with no evidence of acute ST-T changes. Assessment & Plan Problems: (1) Elevated troponin Plan: Most likely related to demand ischemia. The patient has no clinical history or evidence for acute coronary syndrome. This time will follow-up with her echocardiogram and continue with serial troponins. If her troponins start to come down and her echocardiogram shows no evidence for acute coronary syndrome then she may consider ischemic evaluation as an outpatient. However troponins do not improve by tomorrow then we may consider inpatient stress sestamibi prior to discharge to evaluate for any significant obstructive coronary disease. I suspect that she does have some degree of obstructive coronary disease given her risk factors for long-standing history of smoking and hyperlipidemia. This time she has no complaints of chest pain, no EKG changes I was simply treat her with aspirin, intravenous heparin, statin for now. If her troponins start to come down then we may stop her intravenous heparin and continue with aspirin and statin. Given her history of severe COPD I will be somewhat reluctant about starting her beta [place] therapy for now. If her EF is normal then one may consider starting her on low-dose long-acting diltiazem. Status: Acute ICD Code: R74.8 (2) COPD exacerbation Status: Acute ICD Code: J44.1 Pain Evaluation: Adequate Pain Control VTE Prophylaxis: Sub-Q Heparin (Unfractionated) Resuscitation Status: CPR: Attempt Resuscitation Time spent 60 minutes Reg Barajas MD Aug 12, 2016 14:28
[2016-08-12 14:30] LABS: APPEARANCE,URINE CLEAR (CLEAR,HAZY); COLOR,URINE YELLOW (YELLOW); OCCULT BLOOD,URINE NEGATIVE (NEGATIVE); UROBILINOGEN,URINE NORMAL (NORMAL)
--- NOTE | 2016-08-12 16:40 | DRSVH ---
[facility] [address] [place] [place] [address] Echocardiogram Report Name: KENDALL MARTIN LStudy Date: 08/12/2016 Height: 61 in Hospital Exam Location: [facility] Weight: 116 lb Gender: Female BSA: 1.5 m2 : 1950 Age: 65 yrs BP: 108/61 mmHg Reason For Study: HYPOXIA, CHF, NSTEMI Ordering Physician: HOSPITALIST CARMELAerformed By: Lazaro Wick Referring Physician: KATIA HUERTA Interpretation Summary The left ventricular cavity is small. Left ventricular systolic function is normal. The ejection fraction is estimated to be 70-75%. There is basal inferior wall akinesis. There is basal inferoseptal wall severe hypokinesis. The right ventricular cavity is small. The right ventricular systolic function is normal. Pulmonary artery pressures cannot be estimated because of the lack of a measurable TR jet velocity. The left atrium grossly appears normal in size. There is mild mitral regurgitation. There is no other significant valvular heart disease. The aortic root is normal size. Procedure: A two-dimensional transthoracic echocardiogram with color flow and Doppler was performed. The study quality was technically adequate. Images from the parasternal window were difficult to obtain and are suboptimal in quality. There is no prior echocardiogram noted for this patient. The patient was in sinus tachycardia with heart rates between 108-114 bpm during the exam. Left Ventricle: The left ventricular cavity is small. There is normal left ventricular wall thickness. Left ventricular systolic function is normal. The ejection fraction is estimated to be 70-75%. There is basal inferior wall akinesis. There is basal inferoseptal wall severe hypokinesis. Diastolic function could not be accurately assessed due to tachycardia. Right Ventricle: The right ventricular cavity is small. The right ventricular systolic function is normal. Atria: The left atrium grossly appears normal in size. The right atrium grossly appears normal in size. There is no Doppler evidence for an interatrial shunt. Mitral Valve: The mitral valve is grossly normal. There is mild mitral regurgitation. Aortic Valve: The aortic valve is not well visualized. There is no hemodynamically significant valvular aortic stenosis. No aortic regurgitation is present. Tricuspid Valve: The tricuspid valve is not well visualized. Pulmonary artery pressures cannot be estimated because of the lack of a measurable TR jet velocity. Pulmonic Valve: The pulmonic valve is not well visualized. There is no other significant valvular heart disease. Great Vessels: The aortic root is normal size. The ascending aorta could not be visualized. The pulmonary is not well visualized. The IVC is of normal diameter and collapses greater than 50% with a sniff. This suggests a low right atrial pressure of 3 mm Hg. Pericardium/ Pleura There is no pericardial effusion. There is no pleural effusion. MMode/2D Measurements & Calculations IVC diam: 2.1 cm Doppler Measurements & Calculations Ao V2 max MV E max german MV E/A: 0.71 PA V2 max : 148.2 cm/sec : 95.4 cm/sec Med Peak E' German : 111.3 cm/sec Ao max P.8 mmHg MV A max german PA mean PG Ao mean PG : 134.2 cm/sec E/E' med: 17.0 : 2.7 mmHg Lat Peak E' German LVOT Max German : 116.6 cm/sec E/E' lat: 12.6 sev ratio: 0.86 E/e' average: 14.8 MV V2 mean Ao V2 mean LV V1 max PG PA V2 mean : 103.8 cm/sec : 97.4 cm/sec : 78.6 cm/sec MV mean PG Ao V2 VTI: 24.3 cm LV V1 VTI: 20.9 cm PA pr(Accel) : 34.1 mmHg MV V2 VTI: 19.6 cm MV dec time : 0.09 sec Reading Physician:LIAM
--- NOTE | 2016-08-12 17:27 | NUR ---
Mentation/Cardiac/Resp/Activity Patient is a/o. Cooperative. Tele has been ST, 103-110. HR increases with activity. Noted Hr 120s when up to BSC. Critical Troponin level phoned to MD. Orders received and patient is now on a Cardiac Heparin gtt, and cardiology was consulted. Denies any chest discomfort. Bipap was taken off and patient has maintained 91-93% on 0.5L O2 vial NC. lungs are decreased t/o and this afternoon slightly wheezy. Patient states she feels slightly congested. Encouraged to sit up in bed and to cough. Deep breathing is "easier now". Independent in bed and has dangled at bedside and up to BSC. Tolerated well w/o increased sob. Continuing to monitor closely.
[2016-08-12] MEDS: Fluticasone-Salmeterol 500-50 Inhaler INHALATION SCH (19:51)
[2016-08-12] MEDS ORDERED: levoFLOXacin Inj 750 MG in IV Premix 1 EACH IV SCH (21:00)
[2016-08-13] VITALS (13 sets, daily range): BP systolic 101–130; BP diastolic 53–83; PULSE 86–110; RESP 17–26; O2SAT 91–98
[2016-08-13] MEDS: Albuterol-Ipratropium 3 mL Inhalation Solution NEB SCH ×6 (00:38→20:38)
[2016-08-13] MEDS: 0.9% Sodium Chloride 1,000 ML IV SCH ×2 (03:24→16:17)
--- NOTE | 2016-08-13 05:12 | NUR ---
Respiratory Pt on O2 @ 0.5L per NC while awake, with SpO2 sats 94%. Pt then placed on BiPap at HS per RT at 28% FiO2, SpO2 sats 93-97%. Increased dyspnea noted with exertion, and Pt is somewhat slow to recover. Bilateral lung sound are diminished and course with faint crackles and wheezes.
[2016-08-13 05:21] LABS: BASOPHILS % (AUTO) 0 % (0-3); EOSINOPHILS % (AUTO) 0 % (0-5); MONOCYTES % (AUTO) 5.4 % (4-12); Mean Corpuscular Hemoglobin 30.6 pg (27.0-35.0); Mean Corpuscular Volume 96.1 fL (81-100); NEUTROPHILS % (AUTO) 87.9 % (40-74); Platelet Count 227 bil/L (150-400)
[2016-08-13 06:26] LABS: TROPONIN T 0.188 ug/L (0.0-0.011)
--- NOTE | 2016-08-13 08:09 | DRSVH ---
PROCEDURE: X-RAY CHEST ONE VIEW, PORTABLE ([id number]) INDICATIONS: SOB TECHNIQUE: One view of the chest was acquired. COMPARISON: [facility], CR, XR CHEST 1VW (PORTABLE), 08/11/2016, 22:19. FINDINGS: Surgical changes and devices: None. Lungs and pleura: No pleural effusions or pneumothorax. Bibasilar scarring and new airspace opacity in the lower lobes seen on recent chest radiograph are unchanged. Mediastinum: Mediastinal contours appear normal. Heart size is normal. Bones and chest wall: No suspicious bony lesions. Overlying soft tissues appear unremarkable. IMPRESSION: Bibasilar scarring and superimposed air space opacity unchanged from prior examination. Dictated by: Bruno Henriquez RRA Interpreted: Rush Felton MD on 08/12/2016 at 10:46 Approved by: Rush Felton M.D. on 08/13/2016 at 8:07
[2016-08-13] MEDS: Fluticasone-Salmeterol 500-50 Inhaler INHALATION SCH ×2 (08:26→20:21)
[2016-08-13] MEDS: predniSONE 20 mg Tablet PO SCH (08:27)
[2016-08-13] MEDS ORDERED: Sertraline 20 mg/mL Liq PO SCH (08:30)
--- NOTE | 2016-08-13 11:23 | PCM.PNCARD ---
Subjective Date of service Aug 13, 2016 Chief Complaint Shortness of breath History of Present Illness She is feeling better. No chest pain or palpitations. Her echo study surprisingly showed a LV wall motion abnormality. This might suggest CAD. Give the fact her troponins are trending down, we will consider a pharmacological stress mibi tomorrow. Her anemia looks a little worse so I will stop her IV heparin. Constitutional: Denies: Fever, Sweats Cardiovascular: Denies: Chest Pain, Irregular Heart Rate, SOB while laying flat Respiratory: Reports: Shortness of Breath, Denies: Wake up Gasping for Breath, Wake up SOB Gastrointestinal: Denies: Black tarry stools, Blood in stool (red) Genitourinary: Denies: Hematuria Neurological: Denies: Confusion Exam Vital Signs Vital Sign - Last Date Time Temp Pulse Resp B/P Pulse Ox O2 Delivery O2 Flow Rate FiO2 08/13/16 08:31 88 20 94 Room Air 08/13/16 08:13 36.6 117/60 08/13/16 04:48 28 08/13/16 03:20 0.50 Intake and Output 08/12/16 08/12/16 08/13/16 Cumulative From/Thru 15:00 23:00 07:00 08/11/16 22:26 - 08/13/16 06:32 Intake Total 2011 ml 1740 ml 4991 ml Output Total 700 ml 1600 ml 2300 ml Balance 1311 ml 140 ml 2691 ml Intake Oral 300 ml 550 ml 1090 ml IV Total 1711 ml 1190 ml 3901 ml Output Urine Total 700 ml 1600 ml 2300 ml # Bowel Movements 1 1 General: Pleasant Cooperative Skin: Warm & dry to touch Neck: Nuchal obesity:JVP assess difficult Chest: Expiratory wheezes Cardiac: Regular rhythm Abdomen: Obese Extremities: Warm w/o deformities,erythema noted Neurological: Alert & oriented Lab and Diagnostics Result Diagram: 08/13/16 0455 08/13/16 0455 Assessment & Plan Problems: (1) Elevated troponin Plan: Her echocardiogram shows possible ischemic heart disease. Her troponins are trending down. I will go ahead and order a Lexiscan sestamibi for tomorrow am. I have stopped her IV heparin. She will continue with ASA and statins for now. No beta blockers since she does have some active wheezing but this is improving. I will follow up on her stress test results and decide if she needs to continue with inpatient workup for CAD. Status: Acute ICD Code: R74.8 (2) COPD exacerbation Status: Acute ICD Code: J44.1 Pain Evaluation: Adequate Pain Control GI Prophylaxis: Not indicated VTE Prophylaxis: Sub-Q Heparin (Unfractionated) Resuscitation Status: CPR: Attempt Resuscitation Time spent 20 minutes. Reg Barajas MD Aug 13, 2016 11:23
--- NOTE | 2016-08-13 11:38 | PCM.PNMED ---
Subjective Date of Service Aug 13, 2016 Subjective This is a 65 year old female with COPD who presented in respiratory distress with a PC02 of 91 requiring BIPAP. Patient reports that she continues to improve. States that shortness of breath is improving. Nursing reported patient requiring bipap overnight due to O2 sats in the mid 80's. Otherwise review of systems negative. Exam Vital Signs Vital Sign - Last Date Time Temp Pulse Resp B/P Pulse Ox O2 Delivery O2 Flow Rate FiO2 08/13/16 08:31 88 20 94 Room Air 08/13/16 08:13 36.6 117/60 08/13/16 04:48 28 08/13/16 03:20 0.50 Intake and Output 08/12/16 08/12/16 08/13/16 Cumulative From/Thru 15:00 23:00 07:00 08/11/16 22:26 - 08/13/16 06:32 Intake Total 2011 ml 1740 ml 4991 ml Output Total 700 ml 1600 ml 2300 ml Balance 1311 ml 140 ml 2691 ml Intake Oral 300 ml 550 ml 1090 ml IV Total 1711 ml 1190 ml 3901 ml Output Urine Total 700 ml 1600 ml 2300 ml # Bowel Movements 1 1 Exam General: Alert, Oriented X3, Cooperative, No acute Distress, able to speak in full sentences Eyes: PERRLA, Scleral Anicteric Chest & Lungs: End-expiratory wheezing present throughout lung bradley. No crackles. Decreased breath sounds bilaterally. Cardiovascular: Normal S1, Normal S2, distant, Regular Rate/Rhythm, (No JVD, no peripheral edema) Abdomen: Soft, Non-tender, Non-distended, Normoactive bowel tones. Musculoskeletal: Unremarkable. Normal range of motion, Extremities: No edema or cyanosis present in extremities. Skin: No rashes. Warm and dry, no erythematous areas Neurological: Grossly neurologically intact, has generalized weakness, Normal Speech, Sensation Intact IVs and Medications Medications Reviewed: Medications were reviewed in detail Lab and Diagnostics Result Diagram: 08/13/165 08/13/16 045 X-Rays, CTs and MRIs Chest xray on 08/11/2016: IMPRESSION: Bibasilar scarring with superimposed patchy airspace opacity suspicious for pneumonia. Continued radiographic surveillance to resolution is recommended. Dictated by: Bruno GUIDRY Interpreted: Rush Felton MD on 08/12/2016 at 9:46 Cardiac Echo Impressions Echocardiogram on 08/12/2016" Interpretation Summary The left ventricular cavity is small. Left ventricular systolic function is normal. The ejection fraction is estimated to be 70-75%. There is basal inferior wall akinesis. There is basal inferoseptal wall severe hypokinesis. The right ventricular cavity is small. The right ventricular systolic function is normal. Pulmonary artery pressures cannot be estimated because of the lack of a measurable TR jet velocity. The left atrium grossly appears normal in size. There is mild mitral regurgitation. There is no other significant valvular heart disease. The aortic root is normal size. Assessment & Plan 65yoF with past medical history of COPD and HTN admitted with hypercapnic respiratory failure secondary to likely COPD exacerbation. Sepsis, acute, POA, resolved: -On admit: WBC >12, HR>90 -likely source pulmonary, community acquired PNA. -Lactic acid corrected to normal on 08/12 after fluid boluses. Acute on chronic hypercapnic respiratory failure, POA, improving: -secondary to COPD exacerbation -presenting ABG pH 7.024, pCO2 91.6, pO2 134. Repeat ABG showed improvement. -Continue on bipap at night due to oxygen desaturation into mid 80's. -Patient requires nocturnal volume ventilation. Bipap insufficient due to severity of condition, COPD is primary cause of hypercapnia. Obesity hypoventilation syndrome, present on admission, ongoing: -Patient will require nocturnal volume ventilation. Elevated troponin, not present on admission, ongoing: -Troponin on admit .010. Repeat tropoin .256. Troponin trended down. -Cardiology is consulting. -Heparin stopped by cardiology -Echo showed: basal inferior wall akinesis, basal inferoseptal wall severe hypokinesis. -MIBI scan scheduled by cardiology.. COPD exacerbation, acute, POA, improving: -Continue prednisone -Continue levofloxacin -Albuterol-ipratropium q4HR, albuterol q2HR PRN. Continue home symbicort. -Patient off bipap and improving. Still has nighttime oxygen desaturation. [place], acute, POA -Likely prerenal -no known history of kidney disease -baseline creatinine unknown -Improved with fluids. Community acquired pneumonia, acute, POA - Chest xray: Bibasilar scarring with superimposed patchy airspace opacity suspicious for pneumonia. - Continue Levaquin. -Blood cultures negative to date. PCR viral panel negative. Elevated glucose, acute, POA -Likely secondary to steroid -hgba1c 5.6% HTN, chronic -Patient blood pressures have been low 100's. -Hold home bp med losartan for now. Depression / Anxiety, chronic, POA -continue home sertraline 50mg daily DVT prophylaxis: Subq heparin. Dispo: Likely discharge in 1-2 days. Will need to be discharged with trilogy due to COPD and chronic hypercapnic respiratory failure. Pain Evaluation: Adequate Pain Control GI Prophylaxis: Not indicated VTE Prophylaxis: Sub-Q Heparin (Unfractionated) Resuscitation Status: CPR: Attempt Resuscitation Attending Statement The patient was seen and examined together with Dr. Rivera on 08/13/2016 and I have added additional information to the note above. Harjit Rivera DO Aug 13, 2016 11:38 Alpa Emery DO Aug 15, 2016 15:43
--- NOTE | 2016-08-13 18:03 | NUR ---
Respiratory/sputum sample Patient maintaining SpO2 in mid 90s on RA, c/o dyspnea with activity. Receiving scheduled and PRN neb treatments. Lung sounds tight/ wheezy bilaterally. States she feels as though she is breathing better today than previously.Patient has occasional dry cough but unable to provide sputum sample this shift. and micro aware.
[2016-08-14] VITALS (13 sets, daily range): BP systolic 109–133; BP diastolic 67–85; PULSE 89–107; RESP 17–26; O2SAT 93–98
[2016-08-14] MEDS: Albuterol-Ipratropium 3 mL Inhalation Solution NEB SCH ×6 (00:21→20:27)
[2016-08-14] MEDS: 0.9% Sodium Chloride 1,000 ML IV SCH (04:33)
--- NOTE | 2016-08-14 05:18 | NUR ---
Respiratory Pt verbalized slightly dyspneic on exertion and at rest, on RA 92%, bipap w/ fio2 0.28 on at bedtime, continue on nebs tx, bilaterally exp. wheezes. NPO after midnight, denies pain.
[2016-08-14] MEDS ORDERED: levoFLOXacin 750 mg Tablet PO SCH (07:30)
[2016-08-14] MEDS: Fluticasone-Salmeterol 500-50 Inhaler INHALATION SCH ×2 (08:32→20:48)
--- NOTE | 2016-08-14 11:33 | PCM.PNCARD ---
Subjective Date of service Aug 14, 2016 Chief Complaint Shortness of breath History of Present Illness Unfortunately her COPD has worsened so her Lexiscan sestamibi was canceled. We will try tomorrow. Cardiovascular: Reports: Rapid Heart Rate, Denies: Chest Pain Respiratory: Reports: SOB with Exertion, Shortness of Breath, Wheezing Exam Vital Signs Vital Sign - Last Date Time Temp Pulse Resp B/P Pulse Ox O2 Delivery O2 Flow Rate FiO2 08/14/16 10:20 101 08/14/16 08:10 20 98 Room Air 08/14/16 08:00 36.7 132/78 08/14/16 05:15 28 08/13/16 03:20 0.50 Intake and Output 08/13/16 08/13/16 08/14/16 Cumulative From/Thru 15:00 23:00 07:00 08/11/16 22:26 - 08/14/16 06:44 Intake Total 1926 ml 1077 ml 7994 ml Output Total 150 ml 2450 ml Balance 1926 ml 927 ml 5544 ml Intake Oral 950 ml 220 ml 2260 ml IV Total 976 ml 857 ml 5734 ml Output Urine Total 150 ml 2450 ml # Voids 2 1 3 # Bowel Movements 1 2 General: Pleasant Cooperative Chest: Expiratory wheezes Cardiac: Regular rhythm Neurological: Alert & oriented Lab and Diagnostics Result Diagram: 08/14/16 0300 08/14/16 0455 Assessment & Plan Problems: (1) Elevated troponin Plan: Stress sestamibi was canceled due to significant SOB. Treat her COPD and when she is more stable then reconsider stress test. For now, continue to treat her with ASA, statin, and I'll start her on low dose Diltiazem to reduce demand ischemia. I will be a little concern if we try to put her on beta blockers given her severe wheezing. Status: Acute ICD Code: R74.8 (2) COPD exacerbation Status: Acute ICD Code: J44.1 Pain Evaluation: Adequate Pain Control GI Prophylaxis: Not indicated VTE Prophylaxis: Sub-Q Heparin (Unfractionated) Resuscitation Status: CPR: Attempt Resuscitation Time spent 15 minutes. Reg Barajas MD Aug 14, 2016 11:33
[2016-08-14] MEDS: predniSONE 20 mg Tablet PO SCH (12:56)
--- NOTE | 2016-08-14 14:05 | PCM.PNMED ---
Subjective Date of Service Aug 14, 2016 Subjective This is a 65 year old female with COPD who presented in respiratory distress with a PC02 of 91 requiring BIPAP. Patient was doing well this morning. In the afternoon she went for her NM stress test and while transferring became very short of breath with wheezing. She received nebulizer treatments with improvement in symptoms. Otherwise review of systems negative. Exam Vital Signs Vital Sign - Last Date Time Temp Pulse Resp B/P Pulse Ox O2 Delivery O2 Flow Rate FiO2 08/14/16 10:20 101 08/14/16 08:10 20 98 Room Air 08/14/16 08:00 36.7 132/78 08/14/16 05:15 28 08/13/16 03:20 0.50 Intake and Output 08/13/16 08/13/16 08/14/16 Cumulative From/Thru 15:00 23:00 07:00 08/11/16 22:26 - 08/14/16 06:44 Intake Total 1926 ml 1077 ml 7994 ml Output Total 150 ml 2450 ml Balance 1926 ml 927 ml 5544 ml Intake Oral 950 ml 220 ml 2260 ml IV Total 976 ml 857 ml 5734 ml Output Urine Total 150 ml 2450 ml # Voids 2 1 3 # Bowel Movements 1 2 Exam General: Alert, Oriented X3, Cooperative, No acute Distress, able to speak in full sentences Eyes: PERRLA, Scleral Anicteric Chest & Lungs: Wheezing present throughout lung bradley. No crackles. Decreased breath sounds bilaterally. Cardiovascular: Normal S1, Normal S2, distant, Regular Rate/Rhythm, (No JVD, no peripheral edema) Abdomen: Soft, Non-tender, Non-distended, Normoactive bowel tones. Musculoskeletal: Unremarkable. Normal range of motion, Extremities: No edema or cyanosis present in extremities. Skin: No rashes. Warm and dry, no erythematous areas Neurological: Grossly neurologically intact, has generalized weakness, Normal Speech, Sensation Intact IVs and Medications Medications Reviewed: Medications were reviewed in detail Lab and Diagnostics Result Diagram: 08/14/16 0300 08/14/16 0455 X-Rays, CTs and MRIs Chest xray on 08/11/2016: IMPRESSION: Bibasilar scarring with superimposed patchy airspace opacity suspicious for pneumonia. Continued radiographic surveillance to resolution is recommended. Dictated by: Bruno GUIDRY Interpreted: Rush Felton MD on 08/12/2016 at 9:46 Cardiac Echo Impressions Echocardiogram on 08/12/2016" Interpretation Summary The left ventricular cavity is small. Left ventricular systolic function is normal. The ejection fraction is estimated to be 70-75%. There is basal inferior wall akinesis. There is basal inferoseptal wall severe hypokinesis. The right ventricular cavity is small. The right ventricular systolic function is normal. Pulmonary artery pressures cannot be estimated because of the lack of a measurable TR jet velocity. The left atrium grossly appears normal in size. There is mild mitral regurgitation. There is no other significant valvular heart disease. The aortic root is normal size. Assessment & Plan 65yoF with past medical history of COPD and HTN admitted with hypercapnic respiratory failure secondary to likely COPD exacerbation. Sepsis, acute, POA, resolved: -On admit: WBC >12, HR>90 -likely source pulmonary, community acquired PNA. -Lactic acid corrected to normal on 08/12 after fluid boluses. Acute on chronic hypercapnic respiratory failure, POA, improving: -secondary to COPD exacerbation -presenting ABG pH 7.024, pCO2 91.6, pO2 134. Repeat ABG showed improvement. -Continue on bipap at night due to oxygen desaturation into mid 80's. -Patient requires nocturnal volume ventilation. Bipap insufficient due to severity of condition, COPD is primary cause of hypercapnia. Obesity hypoventilation syndrome, present on admission, ongoing: -Patient will require nocturnal volume ventilation. Elevated troponin, not present on admission, ongoing: -Troponin on admit .010. Repeat tropoin .256. Troponin trended down. -Cardiology is consulting. -Heparin stopped by cardiology -Echo showed: basal inferior wall akinesis, basal inferoseptal wall severe hypokinesis. -NM stress test cancelled as patient had wheezing. Cardiology would like better control of COPD and will try to repeat study at later date. COPD exacerbation, acute, POA, improving: -Continue prednisone -Levaquin stopped. -Azithromycin added. -Albuterol-ipratropium q4HR, albuterol q2HR PRN. Continue home symbicort. -Patient off bipap during the day. Has nighttime oxygen desaturation which requires bipap [place], acute, POA -Likely prerenal -no known history of kidney disease -baseline creatinine unknown -Improved with fluids. Community acquired pneumonia, acute, POA - Chest xray: Bibasilar scarring with superimposed patchy airspace opacity suspicious for pneumonia. -Levaquin stopped. -Blood cultures negative to date. PCR viral panel negative. Elevated glucose, acute, POA -Likely secondary to steroid -hgba1c 5.6% HTN, chronic -Patient blood pressures have been low 100's. -Hold home bp med losartan for now. Depression / Anxiety, chronic, POA -continue home sertraline 50mg daily DVT prophylaxis: Subq heparin. Dispo: Likely discharge in 1-2 days. Will need to be discharged with trilogy due to COPD and chronic hypercapnic respiratory failure. GI Prophylaxis: Not indicated VTE Prophylaxis: Sub-Q Heparin (Unfractionated) Resuscitation Status: CPR: Attempt Resuscitation Harjit Rivera DO Aug 14, 2016 14:05
--- NOTE | 2016-08-14 14:12 | NUR ---
SOB.. Pt was taken to nuclear medicine scan for her Blank scan this am. Apparently mid scan, pt had to amb to BR and upon returning was SOB with audible wheezing and was unable to complete the test. Upon returning to room, pt was somewhat dyspnic but able to talk in full sentences. SOB has subsided and pt will have no further testing today. Family at the bedside updated on plan of care
--- NOTE | 2016-08-14 15:52 | NUR ---
Social work note - Readiness for d/c [employer] met with pt - pt's daughter and brother also in the room. Pt was not able to complete Blank scan today due to SOB. Pt not able to d/c home. [employer] was consulted to set up home health. Pt states that she will be home bound after hospitalization, that she is SOB getting to the bathroom. She denies any prior home health services. She would like Home health for RN PT. [employer] provided choices list - no preference for provider. [employer] consulted vendor calendar - Made referral to [facility] Spoke with Josefina - [phone]. Josefina will follow - provided access. Pt would benefit from Trilogy - RT following to coordinate home O2 needs. Plan: Home with [facility] RN PT - transport with family. KADI Vidales
--- NOTE | 2016-08-14 16:02 | PCM.CHPMED ---
Subjective Date of Service: Aug 14, 2016 Provider requesting consult: Harjit Rivera DO Primary Physician: Admitting Physician: Talya Rosenberg DO Primary Care Physician: Other,Physician Attending Physician: Talya Rosenberg DO Chief Complaint: Chief Complaint: PULMONARY CONSULTATION FOR COPD EXACERBATION History of Present Illness: Claritza Medina is a 65 year old woman with past medical history significant for COPD and hypertension who was admitted on 08/12 due to COPD exacerbation and hypercapnic respiratory failure with concern for community acquired pneumonia. The pulmonary team is consulted due to stagnant improvement of her COPD exacerbation. The patient is normally seen at the [facility] in [place] and has had PFTs there once. She is a former smoker of about 40 pack years and quit about 5 years ago. She is not on home O2. Her inhaler regiment consists of Symbicort, Spiriva and Proair as well as nebulized albuterol three times a day. She does not have a home CPAP. The patient states that over the last year she has required multiple courses of steroids with slow tapers and that soon after steroids are stopped she begins to feel significantly short of breath again. She denies any fevers, chills, or productive cough. Her cough is normally not productive. During this admission the patient stated that over the last week or so she has become progressively short of breath and unable to walk to the bathroom. She notes mild lower extremity edema over the course of her hospitalization. On admission the patient's ABG noted a pH of 7.041, pCO2 91.6 and pO2 of 134. She was started on BPAP in the ED with improvement and remained on BPAP for the first night of admission. Today the patient was scheduled for a stress test due to concern for cardiac component of her shortness of breath but began to wheeze and was unable to complete the test. Review of Systems: A comprehensive review of systems was completed and is negative except as noted above. PMH Past Medical History Hypertension COPD Depression Bedside Blood Glucose: 116 Surgical History Appendectomy Cholecystectomy Home Medications Includes: Spiriva Symbicort Proair Albuterol nebulizer Allergies: Coded Allergies: No Known Allergies (Unverified , 08/12/16) Family History Family History Mother had COPD Social History Occupation: retired Hx Alcohol Use: NoHx Substance Use: No Smoking Status: Former Smoker Living Arrangement: with Family Exam Vital Signs Vital Sign - Last Date Time Temp Pulse Resp B/P Pulse Ox O2 Delivery O2 Flow Rate FiO2 08/14/16 10:20 101 08/14/16 08:10 20 98 Room Air 08/14/16 08:00 36.7 132/78 08/14/16 05:15 28 08/13/16 03:20 0.50 Intake and Output 08/13/16 08/13/16 08/14/16 Cumulative From/Thru 15:00 23:00 07:00 08/11/16 22:26 - 08/14/16 06:44 Intake Total 1926 ml 1077 ml 7994 ml Output Total 150 ml 2450 ml Balance 1926 ml 927 ml 5544 ml Intake Oral 950 ml 220 ml 2260 ml IV Total 976 ml 857 ml 5734 ml Output Urine Total 150 ml 2450 ml # Voids 2 1 3 # Bowel Movements 1 2 General: Alert, Oriented X3, Cooperative, No Acute Distress Head: Normal Eyes: PERRLA, EOMI, Scleral Anicteric Nose: Mucous Membr Moist/[place] Mouth: Mouth Normal Neck: Supple, No Thyromegaly Chest & Lungs: Inspiratory wheezes, Expiratory wheezes Abdomen: Non-distended, Obese Extremities: Edema Neurological: Grossly Neurologically Intact, Cranial Nerves 2-12 Intact Lab and Diagnostics Labs Respiratory Viral PCR negative Result Diagram: 08/14/16 0300 08/14/16 0455 X-Rays, CTs and MRIs X-RAY CHEST ONE VIEW, PORTABLE IMPRESSION: Bibasilar scarring and superimposed air space opacity unchanged from prior examination. Dictated by: Bruno GUIDRY Interpreted: Rush Felton MD on 08/12/2016 at 10:46 Additional Diagnostics: DateTimeAnalyzed 12:59:35 -_ pH ____7.371 - 7.350 7.450 pCO2 ___33.9__ -mmHg 35.0 45.0 pO2 ___62.9__ -mmHg 69.0 116 HCO3- ___19.6__ -mmol/L 22.0 26.0 Assessment & Plan Assessment Claritza Medina is a 65 year old woman with past medical history significant for COPD and hypertension who was admitted on 08/12 due to COPD exacerbation and hypercapnic respiratory failure with concern for community acquired pneumonia. The pulmonary team is consulted due to stagnant improvement of her COPD exacerbation. Acute hypercapnic respiratory failure secondary to COPD exacerbation -On BPAP at night, would benefit from home BPAP -Continue supplemental O2 with goal saturation between 88 and 92%. -Continue Azithromycin -Continue DuoNeb Q4 while awake, continue Albuterol Q2 while awake -Continue Advair -Patient's outpatient regiment is quite comprehensive -Increase prednisone to Solu-Medrol 125 mg IV Daily -Recommend pulmonary rehab on discharge. Recommend keep her pulmonology appointment in September with the [facility]. Obesity hypoventilation syndrome -Continue nocturnal NPPV Thank you for allowing us to participate in the care of this patient, we will follow along with you. Problems: Pain Evaluation: Adequate Pain Control GI Prophylaxis: Not indicated VTE Prophylaxis: Sub-Q Heparin (Unfractionated) Resuscitation Status: CPR: Attempt Resuscitation Attending Statement I have seen and examined this patient with the resident physician. Vital signs , labs, imaging have been reviewed. I agree with the assessment and plan above. Please refer to my separately dictated progress note for any modifications to above. Kenya Purdy M.D. Pulmonary and Critical Care medicine Pager [phone] Anjelica Rajput DO Aug 14, 2016 15:44 Kenya Purdy MD Aug 14, 2016 17:15
[2016-08-14] MEDS ORDERED: MethylprednisoLONE Sodium Succinate 62.5 mg/mL 2 mL Inj IVPUSH ONE (16:05)
--- NOTE | 2016-08-14 16:21 | CONS ---
[address] [address] CONSULTATION REPORT PATIENT: KENDALL MARTIN : 1950 MR#: [id number] ADMIT: 08/11/2016 JOB ID: [id number] DATE OF SERVICE: 08/14/16 PULMONARY CONSULTATION NOTE: The patient is a 65-year-old woman seen in consultation at the request of Dr. Emery for severe COPD with hypercapnic respiratory failure and COPD exacerbation. The patient was seen and evaluated with resident physician, Dr. Anjelica Rajput. Please refer to her separate detailed note for complete information. The following is a brief attending note. HISTORY OF PRESENT ILLNESS: The patient is a 65-year-old woman with 40 pack year prior smoking history who has had problems with shortness of breath and wheezing for the last few years. She presented to [facility] with increased shortness of breath a couple of days ago and was found to have hypercapnic respiratory failure with a pH of 7 and a pCO2 in the 90s. She was placed on BiPAP continuously and with this her ABG improved and normalized. She also had evidence of a troponin leak at the time of presentation for which she was supposed to have a stress test done today. Stress test was canceled by staff because she was wheezing audibly on examination. We were asked to see her to help manage this patient. With regards to medications, she says she is on Symbicort, recently added Spiriva and Pro Air as well as albuterol nebulizers at home. She uses the albuterol nebulizers three times a day every day. She has on average an exacerbation every few months requiring prednisone and antibiotics. She cannot identify any other specific triggers for her symptoms such as allergies, seasonal changes, etc. After admission this hospitalization, she has been getting prednisone 40 mg daily, scheduled nebulizers. She has been on oxygen since yesterday and also had azithromycin added today. She is not on home oxygen. She has never been to pulmonary rehab. She has an appointment to see a animal assistant in [place] in September. PAST MEDICAL HISTORY: 1. Hypertension. 2. COPD. SOCIAL HISTORY: Forty year history of smoking a pack a day and quit smoking less than five years ago. Remaining complete physical examination and review of systems as well as family history, etc., is per separate detailed note by resident physician. BRIEF PHYSICAL EXAMINATION: Vital signs reviewed. She is satting 98% on 2 L nasal cannula. General: Alert, oriented, speaking in full sentences. Chest: Bilateral wheezing heard all over the lung bradley. LABORATORIES: Reviewed. WBC normal. Procalcitonin is very mildly elevated at 0.41. Troponin peaked at 0.2 and is down to 0.18. Chest x-ray reviewed and shows minimal patchy bilateral infiltrates. Arterial blood gas, as described above at the time of admission is 7.0 with a pCO2 of 91, and has subsequently normalized to 7.37, pCO2 of 33. ASSESSMENT AND RECOMMENDATIONS: 1. Chronic obstructive pulmonary disease exacerbation. 2. Acute and chronic hypoxic hypercarbic respiratory failure. 3. Suspected severe chronic obstructive pulmonary disease. 4. Troponin leak/non ST-elevation myocardial infarction. A 65-year-old woman with prior 40 pack-year smoking history admitted with COPD exacerbation and hypoxic hypercapnic respiratory failure. She is on appropriate inhaler therapy as an outpatient and has been having frequent exacerbations. At this point she is on prednisone 40 mg, azithromycin, scheduled nebulizers. I would like to increase her prednisone to Solu-Medrol 125 mg IV daily since she does not seem to be improving much on this regimen. She is also using BiPAP q.h.s. and I would like to arrange for a Trilogy noninvasive ventilator. The patient has severe COPD with frequent exacerbations and now hospitalization. I am going to prescribe a Trilogy ventilator for her to use at night and p.r.n. during the daytime. This will help prevent life-threatening exacerbations and hospitalizations. The patient is going to see a animal assistant at [place] in September and I recommended that she start going to pulmonary rehab as well and she will look into this. She is most concerned about the stress test and heart problems but I think we need to wait until her lung condition has improved before repeating this.
[2016-08-14] MEDS: Heparin 5,000 Unit/mL Inj SUBQ SCH ×2 (16:56→23:53)
--- NOTE | 2016-08-14 18:09 | NUR ---
Room Transfer Pt. transfer from 2017, report received from ALEXANDRO Sanchez. A/0x3, up to BR, sitting at bedside. Reoriented pt. to plan and room, states no needs at this time. O2 2L via NC, reports generalized SOB with activity. RT here to admin Neb treatment. Care continues.
--- NOTE | 2016-08-14 23:40 | NUR ---
RESPIRATORY Pt c/o SOB this evening. Pt removed from 2L NC and put back on BiPAP. Pt has audible wheezes with coarse lung sounds. Pt NPO/no caffeine until clarification of possible stress test in AM. No other issues noted at this time.
[2016-08-15] VITALS (16 sets, daily range): BP systolic 114–131; BP diastolic 68–78; PULSE 72–138; RESP 18–22; O2SAT 92–98
[2016-08-15] MEDS: Albuterol-Ipratropium 3 mL Inhalation Solution NEB SCH ×6 (00:09→20:46)
[2016-08-15 04:09] LABS: BASOPHILS % (AUTO) 0 % (0-3); EOSINOPHILS % (AUTO) 0 % (0-5); Mean Corpuscular Volume 96.4 fL (81-100); NEUTROPHILS % (AUTO) 89.5 % (40-74); Platelet Count 206 bil/L (150-400)
--- NOTE | 2016-08-15 05:30 | NUR ---
Patient during sleep was pulling volumes of only 130cc increased to / and volumes increases to 300cc + will leave patient on these settings
[2016-08-15] MEDS ORDERED: Furosemide 10 mg/mL 4 mL Inj IVPUSH ONE ×2 (08:30→16:00)
[2016-08-15] MEDS: MethylprednisoLONE Sodium Succinate 62.5 mg/mL 2 mL Inj IVPUSH SCH (08:39)
[2016-08-15] MEDS: Fluticasone-Salmeterol 500-50 Inhaler INHALATION SCH ×2 (08:39→20:17)
[2016-08-15] MEDS: Heparin 5,000 Unit/mL Inj SUBQ SCH ×2 (08:40→17:05)
--- NOTE | 2016-08-15 11:33 | PROG NOTE ---
[address] [address] PROGRESS NOTE PATIENT: KENDALL MARTIN : 1950 MR#: [id number] ADMIT: 08/11/2016 JOB ID: [id number] DATE: 08/15/2016 PULMONARY PROGRESS NOTE: The patient is a 65-year-old woman seen in followup for COPD exacerbation and hypercapnic respiratory failure. INTERVAL HISTORY: She has moved out of the ICU to [facility]. She wore BiPAP overnight. She is on room air except with activity when she wears 2 L of oxygen. She is still wheezing and has not noticed any significant improvement in her breathing compared to yesterday. REVIEW OF SYSTEMS: Denies cough, sputum, fevers, chills, chest pain. PHYSICAL EXAMINATION: Vital signs reviewed. She is 97% on room air. Afebrile, pulse 101, respirations 22, BP 114/68. General: Sitting up in bed, speaking comfortably in full sentences. Chest: She still has faint bilateral wheezing. LABORATORIES: Reviewed. Cultures reviewed. ASSESSMENT AND RECOMMENDATIONS: 1. Chronic obstructive pulmonary disease exacerbation. 2. Acute hypoxemic respiratory failure -- on nasal cannula intermittently. 3. Acute on chronic hypercarbic respiratory failure. 4. Troponin leak/stq-OL-trojfzyip myocardial infarction. This 65-year-old woman with prior 40 pack-year smoking history is here with a chronic obstructive pulmonary disease exacerbation and acute on chronic hypercarbic respiratory failure. She is slowly improving. She is currently on IV Solu-Medrol, azithromycin, scheduled nebulizers. She is getting BiPAP at night. We are trying to arrange for a Trilogy but it sounds like the expense associated with this would be too high, so she is getting BiPAP instead which should be quite helpful. Nothing else to add from a pulmonary standpoint. I will continue to follow. We should reassess her for home O2 prior to discharge.
--- NOTE | 2016-08-15 14:05 | NUR ---
pt has decided she can not afford the co pay of nearly 300 dollars for a trilogy home vent and since she has been maintained on low levels of BIPAP she would be willing to try it for home use. I discussed this with DR Rivera and DR Purdy and both agree that this is an acceptable plan as she has not failed BIPAP while here at the hospital
--- NOTE | 2016-08-15 18:03 | PCM.PNMED ---
Subjective Date of Service Aug 15, 2016 Subjective This is a 65 year old female with COPD who presented in respiratory distress with a PC02 of 91 requiring BIPAP on admit. Patient was doing well this morning. She has some increased wheezing from several days ago. She is +5.5 liters while in the hospital.. Nebulizer treatments help with improvement in symptoms. Otherwise review of systems negative. Exam Vital Signs Vital Sign - Last Date Time Temp Pulse Resp B/P Pulse Ox O2 Delivery O2 Flow Rate FiO2 08/15/16 09:05 113 08/15/16 07:53 22 98 Nasal Cannula 1.00 08/15/16 07:27 36.3 114/68 08/15/16 04:40 28 Intake and Output 08/14/16 08/14/16 08/15/16 Cumulative From/Thru 15:00 23:00 07:00 08/11/16 22:26 - 08/15/16 05:33 Intake Total 100 ml 8094 ml Output Total 2450 ml Balance 100 ml 5644 ml Intake Oral 100 ml 2360 ml IV Total 0 ml 5734 ml Output Urine Total 2450 ml # Voids 1 4 # Bowel Movements 2 Exam General: Alert, Oriented X3, Cooperative, No acute Distress, able to speak in full sentences Eyes: PERRLA, Scleral Anicteric Chest & Lungs: Wheezing present throughout lung bradley. No crackles. Decreased breath sounds bilaterally. Cardiovascular: Normal S1, Normal S2, distant, Regular Rate/Rhythm, (No JVD, no peripheral edema) Abdomen: Soft, Non-tender, Non-distended, Normoactive bowel tones. Musculoskeletal: Unremarkable. Normal range of motion, Extremities: No edema or cyanosis present in extremities. Skin: No rashes. Warm and dry, no erythematous areas Neurological: Grossly neurologically intact, has generalized weakness, Normal Speech, Sensation Intact IVs and Medications Medications Reviewed: Medications were reviewed in detail Lab and Diagnostics Result Diagram: 08/15/16 03308/15/16 033 X-Rays, CTs and MRIs Chest xray on 08/11/2016: IMPRESSION: Bibasilar scarring with superimposed patchy airspace opacity suspicious for pneumonia. Continued radiographic surveillance to resolution is recommended. Dictated by: Bruno GUIDRY Interpreted: Rush Felton MD on 08/12/2016 at 9:46 Cardiac Echo Impressions Echocardiogram on 08/12/2016" Interpretation Summary The left ventricular cavity is small. Left ventricular systolic function is normal. The ejection fraction is estimated to be 70-75%. There is basal inferior wall akinesis. There is basal inferoseptal wall severe hypokinesis. The right ventricular cavity is small. The right ventricular systolic function is normal. Pulmonary artery pressures cannot be estimated because of the lack of a measurable TR jet velocity. The left atrium grossly appears normal in size. There is mild mitral regurgitation. There is no other significant valvular heart disease. The aortic root is normal size. Assessment & Plan 65yoF with past medical history of COPD and HTN admitted with hypercapnic respiratory failure secondary to likely COPD exacerbation. Sepsis, acute, POA, resolved: -On admit: WBC >12, HR>90 -likely source pulmonary, community acquired PNA. -Lactic acid corrected to normal on 08/12 after fluid boluses. Acute on chronic hypercapnic respiratory failure, POA, improving: -secondary to COPD exacerbation -presenting ABG pH 7.024, pCO2 91.6, pO2 134. Repeat ABG showed improvement. -Continue on bipap at night due to oxygen desaturation into mid 80's. -Patient requires nocturnal volume ventilation. Bipap insufficient due to severity of condition, COPD is primary cause of hypercapnia. -She is + 5.6 liters during hospital stay. -Lasix 40mg daily added. Obesity hypoventilation syndrome, present on admission, ongoing: -Patient will require nocturnal volume ventilation. Elevated troponin, not present on admission, ongoing: -Troponin on admit .010. Repeat tropoin .256. Troponin trended down. -Cardiology is consulting. -Heparin stopped by cardiology -Echo showed: basal inferior wall akinesis, basal inferoseptal wall severe hypokinesis. -NM stress test cancelled cancelled on 08/15 as patient had wheezing. Cardiology would like better control of COPD and will try to repeat study at later date. COPD exacerbation, acute, POA, improving: -Continue prednisone -Levaquin stopped. -Continue azithromycin. -Albuterol-ipratropium q4HR, albuterol q2HR PRN. Continue home symbicort. -Patient off bipap during the day. Has nighttime oxygen desaturation which requires bipap -Pulmonology was consulted on the patient and started high-dose Solu-Medrol IV patient will most likely need to be tapered down off of this or switch to low- dose to complete a full 5 day course of steroids CLIFTON, POA, resolved: -no known history of kidney disease -baseline creatinine unknown -Improved with fluids. Community acquired pneumonia, acute, POA - Chest xray: Bibasilar scarring with superimposed patchy airspace opacity suspicious for pneumonia. -Levaquin stopped. -Blood cultures negative to date. PCR viral panel negative. Elevated glucose, acute, POA -Likely secondary to steroid -hgba1c 5.6% HTN, chronic -Patient blood pressures have been low 100's. -Hold home bp med losartan for now. Depression / Anxiety, chronic, POA -continue home sertraline 50mg daily DVT prophylaxis: Subq heparin. Dispo: Likely discharge in 1-2 days. Will need to be discharged with trilogy due to COPD and chronic hypercapnic respiratory failure. Unsure if the patient will qualify for trilogy however the patient will be discharged home either with trilogy or a BiPAP. GI Prophylaxis: Not indicated VTE Prophylaxis: Sub-Q Heparin (Unfractionated) Resuscitation Status: CPR: Attempt Resuscitation Attending Statement The patient was seen and examined together with Dr. Rivera on 08/15/16 I have added additional information to the note above. Harjit Rivera DO Aug 15, 2016 10:54 Alpa Emery DO Aug 15, 2016 18:42
--- NOTE | 2016-08-15 18:21 | NUR ---
Respiratory Pt continues to have slight scattered wheezes throughout. SpO2 low to mid 90s on RA. Reports mild dyspnea on exertion, states it is better today. IV lasix given as prescribed. Pt frequently misses the hat in the bathroom, so monitoring output has been a challenge. Pt to void using BSC in bathroom as pt is very modest and prefers the privacy of the bathroom, this will ensure accurate output monitoring. VSS. HR SR 90s to ST 120 with exertion.
[2016-08-16] VITALS (16 sets, daily range): BP systolic 98–122; BP diastolic 55–72; PULSE 69–104; RESP 16–22; O2SAT 92–98
[2016-08-16] MEDS: Heparin 5,000 Unit/mL Inj SUBQ SCH ×3 (00:30→16:52)
[2016-08-16] MEDS: Albuterol-Ipratropium 3 mL Inhalation Solution NEB SCH ×6 (00:43→21:27)
--- NOTE | 2016-08-16 04:28 | NUR ---
Respiratory Lung sounds remain scattered/course in a few locations. Pt compliant with HS bipap therapy. Pt slept well throughout the night. TELE: SR with occasional ST with light activity. Plan remains to DC patient with trilogy in a few days once trial and education done for device. Addendum: 08/16/16 at 0432 by VINITA NOBLE RN Plan to DC patient on home *BIPAP in a few days.
[2016-08-16] MEDS: Fluticasone-Salmeterol 500-50 Inhaler INHALATION SCH ×2 (07:59→19:46)
[2016-08-16] MEDS: MethylprednisoLONE Sodium Succinate 62.5 mg/mL 2 mL Inj IVPUSH SCH (07:59)
[2016-08-16] MEDS ORDERED: Furosemide 10 mg/mL 4 mL Inj IVPUSH SCH (08:30)
[2016-08-16] MEDS ORDERED: Verapamil SR 120 mg ER12 Tablet PO SCH (11:15)
[2016-08-16] MEDS ORDERED: Verapamil SR 240 mg ER12 Tablet PO SCH (11:54)
--- NOTE | 2016-08-16 13:10 | PROG NOTE ---
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 She was treated with BiPAP therapy when she presented on August 11. Serial troponin levels were abnormal, displaying normal initial troponin increasing to 0.25, and then with a gradual subsequent decline. Her cardiac evaluation included an echocardiogram which showed a small hyperdynamic left ventricle and persistent tachycardia with evidence of thinning and akinesis involving the base of the inferior and posterior tirado. A 12-lead EKG showed low voltage consistent with her COPD but did not disclose Q-waves that would suggest a Q-wave infarction. She was seen by Dr. Barajas, who recommended nuclear cardiac stress testing; but, because of her severe bronchospastic disease the test was canceled and I was asked to follow up on her care today. She was seen by Dr. Purdy in consultation as well. The patient states that she has been aware of a left precordial chest tightness ever since Friday. It tends to wax and wane and come and go. She took a walk in the quiles yesterday but by the time she reached the end of the quiles she was quite dyspneic and was aware of the precordial tightness. It also occurs periodically at rest. When I talk with her more closely it is apparent that over the past 10 years when she has had exacerbations in her COPD with increased wheezing she has not described symptoms of left precordial chest tightness. There does not appear to be any association of nausea or diaphoresis and there is no radiation of the discomfort. This patient has been on a variety of beta agonists to treat her severe bronchospasm and as a result has been significantly tachycardic. Her echocardiogram again demonstrated low ventricular volumes, hyperdynamic left ventricular contractility, as well as the tachycardia. She does not have a past known history of ischemic heart disease, but clearly has underlying coronary disease as demonstrated by her echocardiogram and cardiac enzymes. OBJECTIVE: The patients examination today is notable for a cushingoid appearance. I do not detect significant jugular venous distention. She has markedly diminished expiratory flow rates bilaterally as well as some scattered faint expiatory wheezes. Heart tones are quite distant. No particular cardiac murmur is identified. Rhythm continues to be somewhat rapid and a little bit irregular. Her abdomen is unremarkable. She has no obvious cyanosis or clubbing. She does have mild left lower extremity pedal edema and ankle edema, less so on the right, which is new for her. LABORATORY: Blood work shows a creatinine of 1.12, potassium slightly high at 5.1. Her blood sugar is moderately increased at 176. Transaminase levels are normal. Her BNP on admission to the hospital was normal at 176 and yet she has been receiving intravenous Lasix. Lactic acid level was significantly elevated on admission but that has subsequently normalized. She has had negative blood cultures. Her chest x-ray was reviewed and demonstrate some bibasilar scarring and mild interstitial prominence. Her heart size is normal. She does have some aortic arch calcification apparent but does not demonstrate obvious pulmonary congestion on her chest x-ray. IMPRESSION: The patient's left precordial tightness very likely represents ischemic symptoms. Given her severe chronic obstructive pulmonary disease I am reluctant to take her directly to the catheterization laboratory. I think we should treat her as having known ischemic heart disease and angina and see if we cannot improve her clinical symptoms medically. She should not be discharged home today and I suggested she stay the weekend as we adjust her antianginal medications and cardiac medications. If she continues to have symptoms of left precordial tightness, which I would consider her anginal symptoms, then coronary angiography will be needed. If we can control her symptoms on medical therapy, then I think she can be followed medically. She should be discharged on a statin drug and atorvastatin 40 mg a day is fine. Baseline lipid profile should be obtained. I am going to discontinue her diuretics and instead will start her up on verapamil 120 mg long-acting b.i.d. to see if we cannot reduce her heart rate and modify her hyperdynamic left ventricular function to reduce the cardiac workload. I am also going to add topical nitrates to see how she responds. I will optimize her anti-platelet therapy with aspirin and clopidogrel. I will leave further recommendations depending upon her clinical course over the weekend.
--- NOTE | 2016-08-16 13:25 | PROG NOTE ---
[address] [address] PROGRESS NOTE PATIENT: KENDALL MARTIN : 1950 MR#: [id number] ADMIT: 08/11/2016 JOB ID: [id number] DATE: PULMONARY PROGRESS NOTE: The patient is a 65-year-old woman seen in followup for acute on chronic hypercapnic respiratory failure and COPD exacerbation. INTERVAL HISTORY: She continues to feel better symptomatically and has not been wearing any oxygen today. Saturations are staying above 90 even with activity. She wore BiPAP overnight and is tolerating that well. REVIEW OF SYSTEMS: Dyspnea improved. Denies cough, sputum, fevers, chills. PHYSICAL EXAMINATION: Vital signs reviewed. She is on room air, satting 92% at this time. General: Alert, oriented, appropriate, in no distress. Chest: Clear to auscultation anteriorly and I hear faint wheezing posteriorly bilaterally which is improved compared to yesterday. ASSESSMENT AND RECOMMENDATIONS: 1. Acute on chronic hypoxic hypercarbic respiratory failure. 2. Chronic obstructive pulmonary disease exacerbation. 3. Troponin leak/[id number] myocardial infarction. Hypoxia seems to have resolved and she is now on room air. She is on an appropriate outpatient regimen of COPD therapy which includes inhaled corticosteroid, long-acting beta agonist, Spiriva, which is a long-acting muscarinic, as well as a nebulizer with albuterol. She does not really qualify for oxygen based on the current findings, but at the patient's request, we will do a nocturnal oximetry to see if she desaturates enough during the night to qualify for nocturnal oxygen. She is currently on Solu-Medrol 125 mg IV which was started on August 14, 2016. I would like to continue that at least until tomorrow because she is still wheezing on exam. I will reassess tomorrow and see if we can switch her to 60 mg p.o. prednisone. Cardiology is following for ischemic related issues. Trilogy was extremely expensive for her so she is getting BiPAP arranged for home use instead and I suspect she will be compliant based on her use of this in the hospital. Patient's family had questions on how to reduce exacerbations and my recommendation was to continue using the BiPAP after discharge and also to enroll in pulmonary rehab. She is seeing a fish skinning machine feeder in [place] in a few weeks time and they will arrange that through him or her.
[2016-08-16] MEDS: Nitroglycerin 2% 1 Gm Ointment TOPICAL SCH ×2 (14:51→19:46)
--- NOTE | 2016-08-16 16:06 | PCM.PNMED ---
Subjective Date of Service Aug 16, 2016 Subjective Patient is doing better. She states she is ready for discharge, however, she does continue to have tightness in her chest. Initial work-up by cardiology culminated in planning for MIBI as an outpatient due to her respiratory status not allowing her to under testing at the current moment. Dr. Martinez was able to review the case today and feels that this patient should undergo cath evaluation prior to discharge. This was discussed with the family and they are willing to stay until friday when she will have a cath. Exam Vital Signs Vital Sign - Last Date Time Temp Pulse Resp B/P Pulse Ox O2 Delivery O2 Flow Rate FiO2 08/16/16 14:50 69 18 122/70 95 Room Air 08/16/16 12:00 36.8 08/16/16 08:00 28 08/15/16 20:47 1.00 Intake and Output 08/15/16 08/15/16 08/16/16 Cumulative From/Thru 15:00 23:00 07:00 08/11/16 22:26 - 08/16/16 06:39 Intake Total 800 ml 310 ml 9204 ml Output Total 200 ml 1700 ml 4350 ml Balance 600 ml -1390 ml 4854 ml Intake Oral 800 ml 300 ml 3460 ml IV Total 10 ml 5744 ml Output Urine Total 200 ml 1700 ml 4350 ml Other 0 ml 0 ml # Voids 3 7 # Bowel Movements 1 3 Exam General: Alert, Oriented X3, Cooperative, No acute Distress Chest & Lungs: Decreased wheezing. No crackles. Decreased breath sounds bilaterally. Cardiovascular:RRR no m/r/g no jvd Abdomen: Soft, Non-tender, Non-distended, Normoactive bowel tones. Extremities: No edema or cyanosis present in extremities. Skin: No rashes. Warm and dry, no erythematous areas Neurological: Grossly neurologically intact IVs and Medications Medications Reviewed: Medications were reviewed in detail Lab and Diagnostics Result Diagram: 08/16/1641908/16/16419 X-Rays, CTs and MRIs Chest xray on 08/11/2016: IMPRESSION: Bibasilar scarring with superimposed patchy airspace opacity suspicious for pneumonia. Continued radiographic surveillance to resolution is recommended. Dictated by: Bruno GUIDRY Interpreted: Rush Felton MD on 08/12/2016 at 9:46 Cardiac Echo Impressions Echocardiogram on 08/12/2016" Interpretation Summary The left ventricular cavity is small. Left ventricular systolic function is normal. The ejection fraction is estimated to be 70-75%. There is basal inferior wall akinesis. There is basal inferoseptal wall severe hypokinesis. The right ventricular cavity is small. The right ventricular systolic function is normal. Pulmonary artery pressures cannot be estimated because of the lack of a measurable TR jet velocity. The left atrium grossly appears normal in size. There is mild mitral regurgitation. There is no other significant valvular heart disease. The aortic root is normal size. Assessment & Plan 65 yo F with past medical history of COPD and HTN admitted with hypercapnic respiratory failure secondary to likely COPD exacerbation. Presumed NSTEMI, present on admission, ongoing: -Troponin on admit .010. Repeat tropoin .256. Troponin trended down afterward -Cardiology is consulting. -Initially treated with Heparin and then stopped by cardiology -Echo showed: basal inferior wall akinesis, basal inferoseptal wall severe hypokinesis. -NM stress test cancelled cancelled on 08/15 as patient had wheezing. Plan was for outpatient evaluation -Today Dr. Martinez evaluated and feels that this is an NSTEMI and that the pt should be cath'd if not able to be controlled medically -Verapamil 120mg BID;Topical nitrates; Plavix and aspirin; Atorvastatin -Lipid panel Acute on chronic hypercapnic respiratory failure, POA, improving: -secondary to COPD exacerbation -presenting ABG pH 7.024, pCO2 91.6, pO2 134. Repeat ABG showed improvement. -Continue on bipap at night due to oxygen desaturation into mid 80's. -Patient requires nocturnal volume ventilation. Bipap insufficient due to severity of condition, COPD is primary cause of hypercapnia. -She is + 5.6 liters during hospital stay. -Lasix 40mg daily STOPPED CLIFTON, POA, ongoing -no known history of kidney disease; Cre resolved and now elevated again likely due to prerenal azotemia -baseline creatinine unknown -Stopped lasix COPD exacerbation, acute, POA, improving: -Continue prednisone -Levaquin stopped. -Continue azithromycin. -Albuterol-ipratropium q4HR, albuterol q2HR PRN. Continue home Symbicort. -Patient off bipap during the day. Has nighttime oxygen desaturation which requires bipap -BiPAP paperwork signed for outpatient and should be ready when she is discharged Friday or Friday ?Community acquired pneumonia, acute, POA -Chest xray: Bibasilar scarring with superimposed patchy airspace opacity suspicious for pneumonia. -Levaquin stopped. -Blood cultures negative to date. PCR viral panel negative. -Procal for tomorrow labs Sepsis, acute, POA, resolved: -On admit: WBC >12, HR>90 -likely source pulmonary, community acquired PNA. -Lactic acid corrected to normal on 08/12 after fluid boluses. Elevated glucose, acute, POA -Likely secondary to steroid -hgba1c 5.6% HTN, chronic -Patient blood pressures have been low 100's. -Hold home bp med losartan for now. Depression / Anxiety, chronic, POA -continue home sertraline 50mg daily Dispo: Discharge Friday or Friday pending cardiology Pain Evaluation: Adequate Pain Control GI Prophylaxis: Not indicated VTE Prophylaxis: Sub-Q Heparin (Unfractionated) Resuscitation Status: CPR: Attempt Resuscitation Attending Statement The patient was seen and examined together with Dr. Lainez on 08/16/2016 and I agree with the history, exam and plan as outlined in the note above. . Richar Lainez DO Aug 16, 2016 16:06 Adria Watkins MD Aug 16, 2016 16:48
--- NOTE | 2016-08-16 17:03 | NUR ---
Status Lungs sounds remain decreased with faint expiratory wheezes. Denies SOA at rest. Dyspneic with ambulation, recovers quickly. Oxygen saturation maintained >92% on room air. Anxiousness and chest tightness reported with exertion this AM, no further episodes for remainder of shift. Denies chest pain. Ambulating short distances in room, refusing to walk halls at this time. Will continue to monitor.
[2016-08-17] VITALS (14 sets, daily range): BP systolic 104–125; BP diastolic 64–75; PULSE 68–116; RESP 18–25; O2SAT 92–98
[2016-08-17] MEDS: Albuterol-Ipratropium 3 mL Inhalation Solution NEB SCH ×7 (00:30→23:43)
[2016-08-17] MEDS: Heparin 5,000 Unit/mL Inj SUBQ SCH ×3 (00:49→16:10)
[2016-08-17 03:21] LABS: BASOPHILS % (AUTO) 0.1 % (0-3); EOSINOPHILS % (AUTO) 0.1 % (0-5); MONOCYTES % (AUTO) 8.3 % (4-12); Mean Corpuscular Hemoglobin 30.9 pg (27.0-35.0); Mean Corpuscular Volume 92.6 fL (81-100); NEUTROPHILS % (AUTO) 73.9 % (40-74); Platelet Count 245 bil/L (150-400)
[2016-08-17 04:08] LABS: TROPONIN T 0.02 ug/L (0.0-0.011)
[2016-08-17 04:19] LABS: Magnesium 2.1 mg/dL (1.6-2.6); Phosphorus 4.2 mg/dL (2.5-4.9)
--- NOTE | 2016-08-17 06:03 | NUR ---
Puncture Wound/Respiratory Small puncture noted on patient's abdomen when she got up to shower. Moderate bruising around puncture, with sanguineous drainage coming from the wound. Dressed the area with dry gauze and tegaderm and then changed the dressing x1. Patient is on heparin sub Q protocol. Patient on BiPap overnight and maintaining SpO2 in the middle 90s. Continue to monitor.
[2016-08-17] MEDS: Nitroglycerin 2% 1 Gm Ointment TOPICAL SCH ×3 (10:52→20:30)
[2016-08-17] MEDS: Fluticasone-Salmeterol 500-50 Inhaler INHALATION SCH ×2 (10:53→19:44)
[2016-08-17] MEDS: MethylprednisoLONE Sodium Succinate 62.5 mg/mL 2 mL Inj IVPUSH SCH (10:53)
[2016-08-17] MEDS: Verapamil SR 240 mg ER12 Tablet PO SCH (10:58)
--- NOTE | 2016-08-17 12:20 | PROG NOTE ---
[address] [address] PROGRESS NOTE PATIENT: KENDALL MARTIN : 1950 MR#: [id number] ADMIT: 08/11/2016 JOB ID: [id number] DATE: 08/17/2016 PULMONARY PROGRESS NOTE: The patient is a 65-year-old woman with COPD exacerbation and acute on chronic hypercapnic respiratory failure. INTERVAL HISTORY: Her breathing feels about the same. She continues to have wheezing. Denies any chest pain, fevers, chills. REVIEW OF SYSTEMS: As above. PHYSICAL EXAMINATION: Vital signs reviewed. Afebrile. Pulse 94, respirations 20, BP 106/67, sats 96% on room air. General: Obese woman sitting up in bed, breathing comfortably at rest. Chest: Clear anteriorly but she has faint wheezing posteriorly as before. LABORATORIES: Reviewed. ASSESSMENT AND RECOMMENDATIONS: 1. Chronic obstructive pulmonary disease exacerbation. 2. Acute on chronic hypercarbic respiratory failure. 3. Troponin leak/non-ST elevation myocardial infarction. A 65-year-old woman with prior smoking history here with COPD exacerbation requiring BiPAP briefly. Now she is only using BiPAP at night and is on room air during the daytime. She has BiPAP arranged for at home. Her home regimen includes a long-acting muscarinic, long-acting bronchodilator, inhaled corticosteroid, and a nebulizer. She does not qualify for oxygen. We did a nocturnal oximetry last night to see if she qualifies for nocturnal oxygen. These results are still pending. Since she continued to wheeze despite 125 mg of Solu-Medrol and scheduled nebulizers, as well as azithromycin, I wonder if she has a component of asthma. I would like to add montelukast to treat allergic asthma and I have recommended to her that she continue taking this as an outpatient for a few weeks to see if it improves overall respiratory symptoms. We will continue the Solu-Medrol 125 for one more day tomorrow and then cut down to 60 mg daily subsequently.
--- NOTE | 2016-08-17 12:30 | PROG NOTE ---
[address] [address] PROGRESS NOTE PATIENT: KENDALL MARTIN : 1950 MR#: [id number] ADMIT: 08/11/2016 JOB ID: [id number] DATE: 08/17/2016 SUBJECTIVE: The patient is still aware of left precordial tightness. This sometimes goes away but is there very subtly much of the time and clearly is exacerbated or aggravated by just getting up in the room and walking about. She has a mild headache related to the topical nitrates but is tolerating it well. She received 120 mg of long-acting verapamil yesterday and her heart rate continues to range in the 100-130 range. She has no other complaints or issues. OBJECTIVE: Her blood pressure is fine in the 100-120 range. Her exam otherwise is unremarkable. LABORATORY: She is mildly anemic with a hemoglobin of 10.8. Serial troponins are signet dropping. IMPRESSION: It is difficult to discern whether this left precordial discomfort represents ischemia or simply tightness related to her COPD; however, it is clear that over the past week this symptom is much more noticeable and different than before, and I suspect that it relates to her acute ischemic event. I am going to increase her verapamil to 240 mg daily to see if we can get better rate control and will continue to observe her closely. Coronary angiography will be considered on Friday if she does not respond medically.
--- NOTE | 2016-08-17 12:31 | PCM.PNMED ---
Subjective Date of Service Aug 17, 2016 Subjective Patient states that she continues to have tightness and pain in her chest with any level of exertion. States that she is at her baseline respiratory status which is not very good, she is uncertain whether the feeling in her chest is due to her heart or her breathing. Otherwise states that she is well. No significant overnight events. Comprehensive ROS negative except as listed above. Exam Vital Signs Vital Sign - Last Date Time Temp Pulse Resp B/P Pulse Ox O2 Delivery O2 Flow Rate FiO2 08/17/16 12:07 36.7 86 20 110/74 94 Room Air 08/17/16 05:28 28 08/15/16 20:47 1.00 Intake and Output 08/16/16 08/16/16 08/17/16 Cumulative From/Thru 15:00 23:00 07:00 08/11/16 22:26 - 08/17/16 05:01 Intake Total 1143 ml 520 ml 96305 ml Output Total 2100 ml 620 ml 7070 ml Balance -957 ml -100 ml 3797 ml Intake Oral 1133 ml 500 ml 5093 ml IV Total 10 ml 20 ml 5774 ml Output Urine Total 2100 ml 620 ml 7070 ml Other 0 ml # Voids 7 # Bowel Movements 3 Exam Gen: A/O x3 pleasant cooperative woman in NAD Neck: Supple, non tender, no thyromegaly, no JVD HEENT: PERRL, EOMI, no scleral icterus, no conjunctival pallor CV: RRR, no murmurs rubs or gallops Resp: Diffuse expiratory wheezing, no rales or rhonchi Abd: Soft, non tender, no organomegaly, no rebound or guarding Extr: No clubbing cyanosis or edema Neuro: CN 2-12 grossly intact, no focal neurologic deficit Psych: pleasant and appropriate mood and affect. IVs and Medications Medications Reviewed: Medications were reviewed in detail Lab and Diagnostics Item Value Date Time Red Blood Count 3.50 mil/mm3 L 08/17/16 0240 Mean Corpuscular Volume 92.6 fL 08/17/16 0240 Mean Corpuscular Hemoglobin 30.9 pg 08/17/16 0240 Mean Corpuscular Hemoglobin Concent 33.3 % 08/17/16 0240 Red Cell Distribution Width 14.2 % 08/17/16 0240 Neutrophils (%) (Auto) 73.9 % 08/17/16 0240 Lymphocytes (%) (Auto) 17.0 % 08/17/16 0240 Monocytes (%) (Auto) 8.3 % 08/17/16 024 Basophils (%) (Auto) 0.1 % 08/17/16 024 Eosinophils (%) (Auto) 0.1 % 08/17/16 024 Estimat Glomerular Filtration Rate 77 mL/min 08/17/16 024 Calcium Level 8.3 mg/dL L 08/17/16 024 Phosphorus Level 4.2 mg/dL 08/17/16 024 Magnesium Level 2.1 mg/dL 08/17/16 024 Total Bilirubin 0.3 mg/dL 08/17/16 024 Aspartate Amino Transf (AST/SGOT) 20 U/L 08/17/16 024 Alanine Aminotransferase (ALT/SGPT) 22 U/L 08/17/16 024 Alkaline Phosphatase 62 U/L 08/17/16 024 Troponin T 0.020 ug/L H 08/17/16 024 Total Protein 6.1 g/dL L 08/17/16 0240 Albumin 3.5 g/dL 08/17/16 0240 Triglycerides Level 86 mg/dL 08/16/16 0420 LDL Cholesterol, Calculated 37.800 mg/dL 08/16/16 0420 Cholesterol Level 153 mg/dL 08/16/16 0420 VLDL Cholesterol 17.200 mg/dL 08/16/16 0420 HDL Cholesterol 98 mg/dL 08/16/16 0420 Cholesterol/HDL Ratio 1.56 08/16/16 042 Procalcitonin 0.07 ng/mL 08/17/16 024 Result Diagram: 08/17/16 02408/17/16 024 Microbiology Blood cultures negative Nasal PCR negative Resp PCR negative Urine S.pneumo antigen negative X-Rays, CTs and MRIs Chest xray on 08/11/2016: IMPRESSION: Bibasilar scarring with superimposed patchy airspace opacity suspicious for pneumonia. Continued radiographic surveillance to resolution is recommended. Dictated by: Bruno GUIDRY Interpreted: Rush Felton MD on 08/12/2016 at 9:46 Cardiac Echo Impressions Echocardiogram on 08/12/2016" Interpretation Summary The left ventricular cavity is small. Left ventricular systolic function is normal. The ejection fraction is estimated to be 70-75%. There is basal inferior wall akinesis. There is basal inferoseptal wall severe hypokinesis. The right ventricular cavity is small. The right ventricular systolic function is normal. Pulmonary artery pressures cannot be estimated because of the lack of a measurable TR jet velocity. The left atrium grossly appears normal in size. There is mild mitral regurgitation. There is no other significant valvular heart disease. The aortic root is normal size. Assessment & Plan 65 yo F with past medical history of COPD and HTN admitted with hypercapnic respiratory failure secondary to likely COPD exacerbation. Per discussion with cardiology the patient may be kept until Friday for possible Cath, however, now that Trops are precipitously downtrending she may be appropriate for medical management; this decision will be deferred to cardiology. Presumed NSTEMI, present on admission, ongoing: -Troponin on admit .010. Repeat tropoin .256. Troponin trended down afterward -Cardiology is consulting. -Initially treated with Heparin and then stopped by cardiology -Echo showed: basal inferior wall akinesis, basal inferoseptal wall severe hypokinesis. -NM stress test cancelled cancelled on 08/15 as patient had wheezing. Plan was for outpatient evaluation -Today Dr. Martinez evaluated and feels that this is an NSTEMI and that the pt should be cath'd if not able to be controlled medically -Verapamil 120mg BID;Topical nitrates; Plavix and aspirin; Atorvastatin -Lipid panel with results as above, no significant hyperlipidemia Acute on chronic hypercapnic respiratory failure, POA, improving: -secondary to COPD exacerbation -presenting ABG pH 7.024, pCO2 91.6, pO2 134. Repeat ABG showed improvement. -Continue on bipap at night due to oxygen desaturation into mid 80's. -Patient requires nocturnal volume ventilation. COPD is primary cause of hypercapnia. -She is + 5.6 liters during hospital stay. -Lasix 40mg daily STOPPED CLIFTON, POA, ongoing -no known history of kidney disease; Cr resolved and now elevated again likely due to prerenal azotemia -baseline creatinine unknown -Stopped lasix COPD exacerbation, acute, POA, improving: -Continue prednisone -Levaquin stopped. -Continue azithromycin. -Albuterol-ipratropium q4HR, albuterol q2HR PRN. Continue home Symbicort. -Patient off bipap during the day. Has nighttime oxygen desaturation which requires bipap -BiPAP paperwork signed for outpatient and should be ready when she is discharged Friday or Friday ?Community acquired pneumonia, acute, POA -Less likely as procalc was negative and WBC was not elevated -Chest xray: Bibasilar scarring with superimposed patchy airspace opacity suspicious for pneumonia. -Levaquin stopped. -Blood cultures negative to date. PCR viral panel negative. -Procal negative Sepsis, acute, POA, resolved: -On admit: WBC >12, HR>90 -likely source pulmonary, community acquired PNA. -Lactic acid corrected to normal on 08/12 after fluid boluses. Elevated glucose, acute, POA -Likely secondary to steroid -hgba1c 5.6% HTN, chronic -Patient blood pressures have been low 100's. -Hold home bp med losartan for now. Depression / Anxiety, chronic, POA -continue home sertraline 50mg daily Dispo: Discharge Friday or Friday pending cardiology Pain Evaluation: Adequate Pain Control GI Prophylaxis: Not indicated VTE Prophylaxis: Sub-Q Heparin (Unfractionated) Resuscitation Status: CPR: Attempt Resuscitation Attending Statement The patient was seen and examined together with Dr. Aragon on 08/17/2016 and I agree with the history, exam and plan as outlined in the note above. . Orlin Aragon DO Aug 17, 2016 12:31 Adria Watkins MD Aug 18, 2016 20:05
[2016-08-18] VITALS (19 sets, daily range): BP systolic 111–132; BP diastolic 67–93; PULSE 87–117; RESP 18–26; O2SAT 87–96
[2016-08-18] MEDS: Heparin 5,000 Unit/mL Inj SUBQ SCH ×3 (00:11→17:26)
[2016-08-18 03:34] LABS: Mean Corpuscular Hemoglobin 29.9 pg (27.0-35.0); Mean Corpuscular Volume 93.6 fL (81-100)
[2016-08-18 04:00] LABS: TROPONIN T 0.01 ug/L (0.0-0.011)
[2016-08-18 04:11] LABS: Magnesium 2.2 mg/dL (1.6-2.6); Phosphorus 4.4 mg/dL (2.5-4.9)
[2016-08-18] MEDS: Albuterol-Ipratropium 3 mL Inhalation Solution NEB SCH ×5 (04:40→19:56)
--- NOTE | 2016-08-18 05:58 | NUR ---
Respiratory Patient ambulating on room air without difficulty. Reports some shortness of breath but states that it is "almost the way it usually is." On BiPAP overnight without issue.
[2016-08-18] MEDS: Fluticasone-Salmeterol 500-50 Inhaler INHALATION SCH ×2 (07:48→20:35)
[2016-08-18] MEDS: Verapamil SR 240 mg ER12 Tablet PO SCH (07:49)
[2016-08-18] MEDS: MethylprednisoLONE Sodium Succinate 62.5 mg/mL 2 mL Inj IVPUSH SCH (07:49)
[2016-08-18] MEDS: Nitroglycerin 2% 1 Gm Ointment TOPICAL SCH ×3 (07:50→21:11)
[2016-08-18] MEDS ORDERED: Furosemide 10 mg/mL 2 mL Inj IVPUSH ONE (09:40)
--- NOTE | 2016-08-18 10:20 | PROG NOTE ---
[address] [address] PROGRESS NOTE PATIENT: KENDALL MARTIN : 1950 MR#: [id number] ADMIT: 08/11/2016 JOB ID: [id number] DATE: 08/18/2016 PULMONARY PROGRESS NOTE: The patient is a 65-year-old woman with COPD exacerbation and acute on chronic hypercapnic respiratory failure. INTERVAL HISTORY: She continues to have some wheezing. Dyspnea is stable. She is on room air. REVIEW OF SYSTEMS: Positive for cough, sputum. No chest pain. No fevers or chills. PHYSICAL EXAMINATION: Vital signs reviewed. Afebrile. Pulse 97, respirations 26, BP 132/89. Sats 93% on room air. She wears BiPAP at night. General: Obese woman sitting up in the chair breathing comfortably at rest. Chest: Still faint wheezing heard bilaterally which is improved from my initial examination, but unchanged compared to yesterday. LABORATORIES: Reviewed. ASSESSMENT AND RECOMMENDATIONS: 1. Chronic obstructive pulmonary disease exacerbation. 2. Acute on chronic hypercarbic respiratory failure. 3. Troponin leak/non-ST elevation myocardial infarction. The patient is on an appropriate regimen of inhalers for chronic obstructive pulmonary disease at baseline as mentioned in my initial consultation note. She is on Spiriva Respimat, as well as Symbicort, ProAir, and albuterol nebulizer at home which she uses three times a day. She has had problems with frequent exacerbations prior to hospitalization. She sees a fly winder at [facility]. With regards to additional therapies at the end of this hospitalization. She does not really qualify for oxygen currently. I thought she had a nocturnal oximetry study done Friday night, but appears I was mistaken so I have requested this to be done tonight on BiPAP with room air to see if she qualifies for adding oxygen. We have also arranged for a BiPAP noninvasive ventilator for home use. I also added montelukast to her home and hospital regimen to see if there is a component of asthma that makes her wheeze all the time. She has been on Solu-Medrol 125 mg IV daily for the last 4-5 days, and I stopped this dose today and switched her down to prednisone 60 mg daily starting tomorrow. I expect this can be tapered off within a week. Because she continues to wheeze, I wonder if this could be a cardiac wheeze so I am going to give her a dose of Lasix 20 mg IV today to see if that helps. I encouraged her to attend pulmonary rehab at [facility] and talk to her fly winder there about a referral once she leaves the hospital. Dr. Ybarra takes over the pulmonary service tomorrow. All of the above was discussed with Dr. Watkins with the [facility] team. Please call the Pulmonary Service for any additional issues or questions regarding this patient.
--- NOTE | 2016-08-18 10:43 | PROG NOTE ---
[address] [address] PROGRESS NOTE PATIENT: KENDALL MARTIN : 1950 MR#: [id number] ADMIT: 08/11/2016 JOB ID: [id number] DATE: 08/18/2016 SUBJECTIVE: The patient states that she is feeling better today. She has been up and around the room and although she gets dyspneic with mild activity her symptoms of chest tightness have improved. She continues to have some edema in her left lower extremity and not her right lower extremity. She continues to have mild wheezing. Telemetry review shows that she is in a multifocal atrial tachycardia which is common in patients with severe COPD with heart rates ranging in the 100-130 range. She has had just a day and a half or two days of calcium channel blockers. She received her first dose of 240 mg of verapamil this morning and her heart rates again are still in the 110-130 range. PHYSICAL EXAMINATION: Examination today shows of that she is looking a little more comfortable. She continues to have some mild expiratory wheezing and decreased breath sounds diffusely. Cardiac auscultation notable for distant heart tones and a moderately rapid irregular rhythm. The lower extremities again demonstrate pedal and pretibial edema in the left lower extremity and not the right. DISCUSSION: This patient I think deserves a couple more days of medical therapy before committing to angiography. We know she has underlying coronary disease. At this point, it is unclear if her symptoms of precordial chest tightness are cardiac or pulmonary and how much her cardiac issues contribute to her dyspnea. At this point, I am hopeful that the verapamil will improve her overall heart rate and with that her symptoms might improve. I would like to see how she does today and maybe even through the day tomorrow. If over the course of the next 48 hours her symptoms do not improve or her heart rate is difficult to control the dose of her verapamil could certainly be escalated, and we can consider proceeding with inpatient coronary angiography. I will be signing out to one of my partners tomorrow who can follow up on this patient's clinical course and make that decision. It is notable that the patient has left lower extremity edema. Despite the fact that she is on aspirin and Plavix and subcu heparin it may be worthwhile looking with ultrasound examination to make sure she does not have a DVT in her left lower extremity.
--- NOTE | 2016-08-18 16:57 | NUR ---
Social Work Note: Continued Discharge Planning Data& Assessment: Per MD pt is not medically ready for discharge at this time. SW met with pt at bedside to check in and assess for any unmet needs. Pt confirmed discharge plan home with [facility] PT and RN when medically ready. Pt respiratory needs are decreasing and pt was on room air during bedside visit. Pt denies any other needs at this time. SW to continue to follow. Plan: Anticipated discharge home via POV with [facility] PT and RN to follow. Pt denies any other needs at this time. SW to continue to follow. KATERINA Roberts
--- NOTE | 2016-08-18 16:59 | NUR ---
ELBERT Signed KATERINA Roberts
--- NOTE | 2016-08-18 19:19 | NUR ---
chest discomfort; respiratory pt. c/o mild chest discomfort today; states it is only uncomfortable after she is out of bed; states that it used to take 10-15 minutes to recover from pain and sob and now it only takes about 5 minutes. RA sats this am 88-90%; 1L NC placed to bring o2 up above 92%; receiving scheduled nebs and steroids.
--- NOTE | 2016-08-18 20:09 | PCM.PNMED ---
Subjective Date of Service Aug 18, 2016 Subjective Patient continues to do well overnight with the use of BiPAP. Her son is present and they were both updated on her course of care. Discussion was held Dr. Martinez today about medical management versus possible cath on Friday or Friday. Patient is intermittently tachycardic and her blood pressure is somewhat uncontrolled today with SBP in the 160s. We will restart her home meds Exam Vital Signs Vital Sign - Last Date Time Temp Pulse Resp B/P Pulse Ox O2 Delivery O2 Flow Rate FiO2 08/18/16 19:56 96 22 90 Room Air 08/18/16 19:45 36.9 129/93 08/18/16 12:06 1.00 08/18/16 04:41 28 Intake and Output 08/17/16 08/17/16 08/18/16 Cumulative From/Thru 15:00 23:00 07:00 08/11/16 22:26 - 08/18/16 06:21 Intake Total 460 ml 490 ml 120 ml 09428 ml Output Total 500 ml 350 ml 550 ml 8470 ml Balance -40 ml 140 ml -430 ml 3467 ml Intake Oral 440 ml 480 ml 100 ml 6113 ml IV Total 20 ml 10 ml 20 ml 5824 ml Output Urine Total 500 ml 350 ml 550 ml 8470 ml Other 0 ml # Voids 2 1 10 # Bowel Movements 0 3 Exam Gen: A/O x3 pleasant cooperative woman in NAD CV: RRR, no murmurs rubs or gallops Resp: wheezing improved Abd: Soft, non tender, +bs Extr: No clubbing cyanosis or edema Neuro: CN 2-12 grossly intact, no focal neurologic deficit Psych: pleasant and appropriate mood and affect. IVs and Medications Medications Reviewed: Medications were reviewed in detail Lab and Diagnostics Result Diagram: 08/18/1631408/18/16314 Microbiology Blood cultures negative Nasal PCR negative Resp PCR negative Urine S.pneumo antigen negative X-Rays, CTs and MRIs Chest xray on 08/11/2016: IMPRESSION: Bibasilar scarring with superimposed patchy airspace opacity suspicious for pneumonia. Continued radiographic surveillance to resolution is recommended. Dictated by: Bruno GUIDRY Interpreted: Rush Felton MD on 08/12/2016 at 9:46 Cardiac Echo Impressions Echocardiogram on 08/12/2016" Interpretation Summary The left ventricular cavity is small. Left ventricular systolic function is normal. The ejection fraction is estimated to be 70-75%. There is basal inferior wall akinesis. There is basal inferoseptal wall severe hypokinesis. The right ventricular cavity is small. The right ventricular systolic function is normal. Pulmonary artery pressures cannot be estimated because of the lack of a measurable TR jet velocity. The left atrium grossly appears normal in size. There is mild mitral regurgitation. There is no other significant valvular heart disease. The aortic root is normal size. Assessment & Plan 65 yo F with past medical history of COPD and HTN admitted with hypercapnic respiratory failure secondary to likely COPD exacerbation. Per discussion with cardiology the patient may be kept until Friday for possible Cath, however, now that Trops are precipitously downtrending she may be appropriate for medical management; this decision will be deferred to cardiology. Presumed NSTEMI, present on admission, ongoing: -Troponin on admit .010. Repeat tropoin .256. Troponin trended down afterward -Cardiology is consulting. -Initially treated with Heparin and then stopped by cardiology -Echo showed: basal inferior wall akinesis, basal inferoseptal wall severe hypokinesis. -NM stress test cancelled cancelled on 08/15 as patient had wheezing. Plan was for outpatient evaluation -Dr Martinez is attempting to manage symptoms and tachycardia with medications; if this should fail then cath may be desired -Verapamil 240mg PO ;Topical nitrates; Plavix and aspirin; Atorvastatin -Lipids unremarkable HTN, chronic; ongoing -Patient blood pressures have been low 100's. -Restarting Losartan 25mg daily Acute on chronic hypercapnic respiratory failure, POA, resolving -secondary to COPD exacerbation -presenting ABG pH 7.024, pCO2 91.6, pO2 134. Repeat ABG showed improvement. -Continue on bipap at night due to oxygen desaturation into mid 80's. -Patient requires nocturnal volume ventilation. COPD is primary cause of hypercapnia. -Awaiting night O2 trial with BiPAP CLIFTON, POA, stable -no known history of kidney disease; Cr resolved and now elevated again likely due to prerenal azotemia -baseline creatinine unknown -Currently off lasix COPD exacerbation, acute, POA, improving: -Continue prednisone -Levaquin stopped. -Continue azithromycin. -Albuterol-ipratropium q4HR, albuterol q2HR PRN. Continue home Symbicort. -Decreased Steroids to prednisone 60mg PO daily -Added montelukast Sepsis, acute, POA, resolved: -On admit: WBC >12, HR>90 -likely source pulmonary, community acquired PNA. -Lactic acid corrected to normal on 08/12 after fluid boluses. Elevated glucose, acute, POA; stable -Likely secondary to steroid -hgba1c 5.6% Depression / Anxiety, chronic, POA -continue home sertraline 50mg daily Dispo: Discharge Friday or Friday pending cardiology GI Prophylaxis: Not indicated VTE Prophylaxis: Sub-Q Heparin (Unfractionated) Resuscitation Status: CPR: Attempt Resuscitation Attending Statement The patient was seen and examined together with Dr. Lainez on 08/18/2016 and I agree with the history, exam and plan as outlined in the note above. . Richar Lainez DO Aug 18, 2016 20:09 Adria Watkins MD Aug 20, 2016 19:48
[2016-08-19] VITALS (26 sets, daily range): BP systolic 90–127; BP diastolic 51–70; PULSE 65–93; RESP 14–22; O2SAT 83–98
[2016-08-19] MEDS: Heparin 5,000 Unit/mL Inj SUBQ SCH ×3 (00:17→18:11)
[2016-08-19] MEDS: Albuterol-Ipratropium 3 mL Inhalation Solution NEB SCH ×6 (01:48→19:20)
--- NOTE | 2016-08-19 02:00 | NUR ---
Patient on RA asleep since 2330 08/18. Spo2 running between 87-88% till awakened at 0140 for nebulizer tx was asleep on ra for 2hours with spo2 88 of less, qualifying her for overnight O2. Patient placed on 1 lnc after tx. for rest of night.
--- NOTE | 2016-08-19 03:05 | NUR ---
Patient asked if she wanted to go on Bipap at this time, refusing, stating it hurts her face. Patient still easliy roused and appropirate with no resp distress at this time. RN notified.
[2016-08-19 03:45] LABS: BASOPHILS % (AUTO) 0.1 % (0-3); EOSINOPHILS % (AUTO) 0 % (0-5); MONOCYTES % (AUTO) 7.3 % (4-12); Mean Corpuscular Hemoglobin 30.5 pg (27.0-35.0); Mean Corpuscular Volume 95.5 fL (81-100); NEUTROPHILS % (AUTO) 80.1 % (40-74); Platelet Count 229 bil/L (150-400)
--- NOTE | 2016-08-19 06:11 | NUR ---
Respiratory Patient ambulating in room on room air at start of shift. Denies chest discomfort, although she admits she has had some over the course of the day, mostly when getting in and out of the bed. Overnight oximetry monitoring showed patient desats to 86% SpO2 on room air- see RT note. Patient placed on 0.5 L O2 by nasal cannula and sleeping comfortably. SpO2 92-96%.
[2016-08-19] MEDS: predniSONE 20 mg Tablet PO SCH (09:00)
[2016-08-19] MEDS: Nitroglycerin 2% 1 Gm Ointment TOPICAL SCH ×3 (09:01→21:15)
[2016-08-19] MEDS: Fluticasone-Salmeterol 500-50 Inhaler INHALATION SCH ×2 (09:03→21:13)
[2016-08-19] MEDS: Verapamil SR 240 mg ER12 Tablet PO SCH (09:03)
[2016-08-19] MEDS ORDERED: diphenhydrAMINE 25 mg Capsule PO ONE (12:35)
[2016-08-19] MEDS ORDERED: Nitroglycerin 50,000 mcg/250 mL D5W Premix IV ONE (12:57)
[2016-08-19] MEDS ORDERED: Heparin 1,000 Units/500 mL NS Premix IV ONE (12:57)
[2016-08-19] MEDS ORDERED: Heparin 1,000 Unit/mL 10 mL Inj ONE (12:58)
[2016-08-19] MEDS ORDERED: Heparin 10,000 Unit/1,000 mL NS Premix IV ONE (12:58)
[2016-08-19] MEDS: 0.9% Sodium Chloride 1,000 ML IV SCH ×2 (13:05→19:41)
[2016-08-19] MEDS ORDERED: fentaNYL-PF 50 mCg/mL 2 mL Inj ONE (14:09)
--- NOTE | 2016-08-19 15:21 | DRSVH ---
PROCEDURE: EITHER REST OR STRESS ONLY Resting myocardial perfusion SPECT, with gated imaging and ejection fraction RADIOPHARMACEUTICAL: 8 point mCi 99m-Tc tetrafosmin IV. INDICATIONS: Chest pain. TECHNIQUE: Radiopharmaceutical was injected at rest. SPECT images were obtained. SPECT myocardial perfusion images were displayed in short axis, horizontal long axis, and vertical long axis views. G ated images were reviewed using Auto[employer] software. COMPARISON: None. FINDINGS: Raw data: There is good tracer uptake by the myocardium. No significant motion artifacts. Left ventricle function: Gated images demonstrate left ventricle wall thickening. No segmental wall motion abnormalities. No transient ischemic dilation. Left ventricle resting end-diastolic volume is 45 mL. Left ventricle resting ejection fraction is 72%; normal values are above 45%. Myocardial perfusion: There is normal distribution of activity in the left and right ventricular sharad cardium. No perfusion defects. IMPRESSION: 1. Resting state only demonstrates no perfusion defects. 2. Ejection 72%. PQRS ATTESTATIONS: Measure 322 - Is this imaging test primarily performed on a low-risk surgery patient for preoperative evaluation within 30 days preceding their low-risk non-cardiac surgery? Low-risk surgery is defined as cardiac or myocardial infarction less than 1%, including (but not limited to) endoscopic pr ocedures, superficial procedures, cataract surgery, and excisional breast surgery: Answer: No Measure 323 - Is this imaging test performed primarily for the monitoring of an asymptomatic patient who had percutaneous coronary intervention on the visit date or within 2 years of the visit date? An swer: No Measure 324 - Is this imaging test performed primarily for the initial detection and risk assessment on an asymptomatic, low coronary heart disease patient? Low CHD risk definition = clinicians should consider the maximum number of available patient factors used to estimate risk based on [place] (A TP III criteria), typically age, gender, diabetes, smoking status, and use of blood pressure medicati on, and integrate age appropriate estimates for missing elements, such as LDL or standard blood press ure. Answer: No Dictated by: Italia Jackson M.D. on 08/19/2016 at 15:18 Approved by: Italia Jackson M.D. on 08/19/2016 at 15:19
[2016-08-19] MEDS ORDERED: 0.9% Sodium Chloride 250 ML IV ONE (16:25)
--- NOTE | 2016-08-19 16:57 | PROG NOTE ---
[address] [address] PROGRESS NOTE PATIENT: KENDALL MARTIN : 1950 MR#: [id number] ADMIT: 08/11/2016 JOB ID: [id number] DATE: 08/19/2016 PROBLEM LIST: 1. Acute exacerbation of COPD. 2. Acute on chronic hypercarbic respiratory failure. SUBJECTIVE: Breathing seems about the same as usual. Continues to have wheezes. Feels a bit tight. Although this has improved since admission it is has not really improved over the last day or so. The patient scheduled for a procedure early this afternoon from Cardiology, addressing her feeling of chest tightness has improved. Says it is almost gone. No particular problem with cough or sputum production. OBJECTIVE: Temperature 36.9. Pulse mid 80s. Respiratory rate mid teens. Blood pressure 108/56, O2 sat on room air is 90%. O2 sat on 2 L by nasal cannula is 96%. General appearance: No acute distress. Chronically ill-appearing. Maybe slightly cushingoid appearing. Eyes: Conjunctivae are pink. Chest: Fair breath sounds bilaterally. There are diffuse expiratory wheezes. Also a few scattered crackles, mostly on inspiration. No use of accessory muscles though. Heart: Predominantly regular rhythm. Heart tones seem normal. Abdomen soft. Bowel tones present. Extremities: No pretibial edema. There is more of a fullness to the left lower extremity compared to the right. No pain. ASSESSMENT: Acute exacerbation of chronic obstructive pulmonary disease. Etiology unclear. Some studies suggest that pulmonary embolism underlies a significant percentage of these patients who require hospitalization for acute exacerbation of chronic obstructive pulmonary disease but no probable etiology forthcoming. Heart: Predominantly regular rhythm. Heart tones seem normal. Abdomen is soft. LABORATORY DATA: Shows a white count of 12,600 with moderate neutrophilia. Hemoglobin stable at 10.9. Platelet count stable at 229,000. Lytes are normal. BUN 29 and stable, creatinine 1.09 and stable. Total bilirubin normal at 0.3. Transaminases are normal. Alkaline phosphatase normal at 57. Nasopharyngeal swab for respiratory viral panel by PCR is negative. Blood cultures are negative to date. Urine for Strep antigen is negative. Urine for Legionella antigen is negative. ASSESSMENT: 1. Patient clinically doing a little bit better. Still with a significant amount of wheezing though the patient states she is always told there is wheezing and she is aware of wheezing most of the time. Pretty much back to her baseline though her baseline is pretty low level of activity. Somewhat concerned about the asymmetry of her leg. Always concerned about pulmonary emboli in these rather frail individuals given the associated morbidity and mortality. 2. Chest discomfort. Cardiology workup ongoing. PLAN: 1. Concur with decrease in prednisone to 60 mg daily. 2. Continue with nebulized DuoNeb. 3. Depending on Cardiology results, may want to increase.
--- NOTE | 2016-08-19 18:05 | NUR ---
From [facility] at 1735 post-angiogram; right groin site appears soft, without hematoma, no oozing, bruising noted at site, non-tender, distal pulses DP 3+. Cont'd bedrest, IVFs. A/O and in good spirits. Denies pain, supportive son at bedside. HOB up 30degrees, eating dinner.
--- NOTE | 2016-08-19 18:18 | CS94 ---
[address] [address] DIAGNOSTIC CARDIAC CATHETERIZATION PATIENT: KENDALL MARTIN : 1950 MR#: [id number] ADMIT: 08/11/2016 JOB ID: [id number] SERVICE DATE: PROCEDURE: Selective right and left heart catheterization. INDICATION: Abnormal stress test. Respiratory failure. PROCEDURAL DETAILS: The reader and the coders are referred to the procedure log. Briefly, 5-Malay sheath in the right femoral vein and 5-Malay in the right femoral artery. HEMODYNAMICS: PA pressure was 47/24, with a mean of 36. RV pressure was 44. RV EDP was elevated at 18 RA pressure was a mean of 13. LV pressure was 110. LVEDP was around 27. Aortic pressure was 116/65, mean 87. There was no gradient upon pullback. Cardiac output was 5.5 L/minute based on Lucy calculation and her PA sat was 69 and FA sat was 98. ANGIOGRAPHIC FINDINGS: 1. Left main: No significant disease. 2. LAD is a moderate caliber vessel. It has about 20% lesion in its mid segment. No critical stenosis is noted. 3. Circumflex nondominant. In its mid segment, has a 20% plaque. 4. Mild luminal irregularities are noted in the right coronary artery, which is dominant. 5. Left heart catheterization revealed an LVEDP of 25-30, averaging at around 27. There was no gradient upon pullback. LV-gram showed low-normal LVEF which is estimated to be around 50%. SUMMARY: This lady has moderate pulmonary hypertension. She does not have any critical coronary artery disease. Have recommended aggressive risk factor modification and treatment of her underlying lung disease.
--- NOTE | 2016-08-19 21:48 | PCM.PNMED ---
Subjective Date of Service Aug 19, 2016 Subjective Overnight Events. No acute events overnight. She is resting in bed comfortably and in no acute distress. The patient reports feeling better than the day prior. The patient mentions having a mild on and off left sided headache. denies dizziness, cough, chest pain, shortness of breath, abdominal pain, nausea, vomiting, constipation, and diarrhea. The patient is voiding and eliminating without difficulty. The patient is ambulating without difficulty. Exam Vital Signs Vital Sign - Last Date Time Temp Pulse Resp B/P Pulse Ox O2 Delivery O2 Flow Rate FiO2 08/19/16 20:00 82 08/19/16 19:25 16 95 08/19/16 19:25 Nasal Cannula 2.00 08/19/16 17:45 36.6 96/54 08/18/16 04:41 28 Intake and Output 08/18/16 08/18/16 08/19/16 Cumulative From/Thru 15:00 23:00 07:00 08/11/16 22:26 - 08/19/16 06:16 Intake Total 910 ml 230 ml 84733 ml Output Total 1700 ml 600 ml 40084 ml Balance -790 ml -370 ml 2307 ml Intake Oral 900 ml 200 ml 7213 ml IV Total 10 ml 30 ml 5864 ml Output Urine Total 1700 ml 600 ml 39133 ml Other 0 ml # Voids 10 # Bowel Movements 1 4 Exam General: No acute distress, well-developed, well-nourished, appropriately interactive HEENT: Normocephalic, atraumatic. External ears without defect. Pupils equal and round. Anicteric sclerae, moist conjunctivae. Neck: Supple with full range of motion. Cardiovascular: Regular rate and rhythm with no murmurs, rubs, or gallops appreciated Pulmonary: Mild wheezing, otherwise clear to auscultation bilaterally. Normal respiratory effort with no use of accessory muscles. Abdomen: Bowel tones present. Soft, nontender, nondistended. Extremities: No clubbing, cyanosis, edema, Skin: Normal temperature, turgor, and texture; no rash, ulcers, or subcutaneous nodules appreciated. Neurological: Cranial nerves II-XII grossly intact. Psychiatric: Normal mood and affect. Alert and oriented to person, place, and time. Lab and Diagnostics Result Diagram: 08/19/16 0310 08/19/16 0310 Microbiology Blood cultures negative Nasal PCR negative Resp PCR negative Urine S.pneumo antigen negative X-Rays, CTs and MRIs Chest xray on 08/11/2016: IMPRESSION: Bibasilar scarring with superimposed patchy airspace opacity suspicious for pneumonia. Continued radiographic surveillance to resolution is recommended. Dictated by: Bruno Henriquez Clover Interpreted: Rush Felton MD on 08/12/2016 at 9:46 Cardiac Echo Impressions Echocardiogram on 08/12/2016" Interpretation Summary The left ventricular cavity is small. Left ventricular systolic function is normal. The ejection fraction is estimated to be 70-75%. There is basal inferior wall akinesis. There is basal inferoseptal wall severe hypokinesis. The right ventricular cavity is small. The right ventricular systolic function is normal. Pulmonary artery pressures cannot be estimated because of the lack of a measurable TR jet velocity. The left atrium grossly appears normal in size. There is mild mitral regurgitation. There is no other significant valvular heart disease. The aortic root is normal size. Assessment & Plan 65 yo F with past medical history of COPD and HTN admitted with hypercapnic respiratory failure secondary to likely COPD exacerbation. Per discussion with cardiology the patient will have cath done today (08/19/16) and likely be discharged tomorrow. Presumed NSTEMI, present on admission, ongoing: -Troponin on admit .010. Repeat tropoin .256. Troponin trended down afterward to 0.010. -Cardiology is consulting -Initially treated with Heparin and then stopped by cardiology -Echo showed: basal inferior wall akinesis, basal inferoseptal wall severe hypokinesis. -NM stress test cancelled cancelled on 08/15 as patient had wheezing. Plan was for outpatient evaluation -Verapamil 240mg PO ;Topical nitrates; Plavix and aspirin; Atorvastatin -Lipids unremarkable -Cath done 08/19/16 HTN, chronic; ongoing -Patient blood pressures have been low 100's and into the 90's during cath. -Restarting Losartan 25mg daily -Consider IV fluid bolus 250 mL if blood pressure does not improve. Acute on chronic hypercapnic respiratory failure, POA, resolving -secondary to COPD exacerbation -presenting ABG pH 7.024, pCO2 91.6, pO2 134. Repeat ABG showed improvement. -Continue on bipap at night due to oxygen desaturation into mid 80's. -Patient requires nocturnal volume ventilation. COPD is primary cause of hypercapnia. -Awaiting night O2 trial with BiPAP [place], POA, stable -no known history of kidney disease; Cr resolved and now elevated again likely due to prerenal azotemia -baseline creatinine unknown -Currently off lasix COPD exacerbation, acute, POA, improving: -Continue prednisone -Levaquin stopped. -Continue azithromycin. -Albuterol-ipratropium q4HR, albuterol q2HR PRN. Continue home Symbicort. -Decreased Steroids to prednisone 60mg PO daily -Added montelukast Sepsis, acute, POA, resolved: -On admit: WBC >12, HR>90 -likely source pulmonary, community acquired PNA. -Lactic acid corrected to normal on 08/12 after fluid boluses. Elevated glucose, acute, POA; stable -Likely secondary to steroid -hgba1c 5.6% Depression / Anxiety, chronic, POA -continue home sertraline 50mg daily Acetaminophen for mild pain when necessary. Bowel regimen Senna and MiraLAX scheduled and PRN. Zofran when necessary for nausea and vomiting. Dispo: Discharge Friday pending cardiology Pain Evaluation: Adequate Pain Control GI Prophylaxis: Not indicated VTE Prophylaxis: Sub-Q Heparin (Unfractionated) Resuscitation Status: CPR: Attempt Resuscitation Attending Statement The patient was seen and examined together with Dr. Nguyen on 08/19/2016 and I agree with the history, exam and plan as outlined in the note above. . Eonch Nguyen DO Aug 19, 2016 21:26 Adria Watkins MD Aug 20, 2016 19:50
[2016-08-20] VITALS (8 sets, daily range): BP systolic 101–121; BP diastolic 52–71; PULSE 77–94; RESP 16–19; O2SAT 91–98
[2016-08-20] MEDS: Albuterol-Ipratropium 3 mL Inhalation Solution NEB SCH ×3 (00:53→11:38)
[2016-08-20] MEDS: Heparin 5,000 Unit/mL Inj SUBQ SCH ×2 (01:10→08:43)
[2016-08-20 04:44] LABS: BASOPHILS % (AUTO) 0.1 % (0-3); EOSINOPHILS % (AUTO) 0 % (0-5); MONOCYTES % (AUTO) 7.4 % (4-12); Mean Corpuscular Hemoglobin 30.7 pg (27.0-35.0); Mean Corpuscular Volume 96.4 fL (81-100); NEUTROPHILS % (AUTO) 77.5 % (40-74); Platelet Count 193 bil/L (150-400)
--- NOTE | 2016-08-20 07:51 | NUR ---
Sleep Pt reports goal of care is sleep. Care clustered for limited interruption. Care ongoing
[2016-08-20] MEDS: Fluticasone-Salmeterol 500-50 Inhaler INHALATION SCH ×2 (08:30→08:54)
[2016-08-20] MEDS: 0.9% Sodium Chloride 1,000 ML IV SCH (08:35)
[2016-08-20] MEDS: predniSONE 20 mg Tablet PO SCH (08:42)
[2016-08-20] MEDS: Verapamil SR 240 mg ER12 Tablet PO SCH (08:42)
[2016-08-20] MEDS: Nitroglycerin 2% 1 Gm Ointment TOPICAL SCH (08:43)
--- NOTE | 2016-08-20 10:30 | DRSVH ---
PROCEDURE: US VENOUS LEG DUPLEX BILATERAL INDICATIONS: Assymetry, "tightness" DVT eval. TECHNIQUE: Real-time imaging, as well as color and pulse Doppler interrogation, were performed of the deep veins of both legs from the inguinal ligament to the popliteal fossa. COMPARISON: None. FINDINGS: The deep veins are normally compressible, and free of intraluminal thrombus. Color and pu lse Doppler demonstrate normal phasic intravascular flow. There is normal augmentation response to d istal compression maneuver. IMPRESSION: No DVT found over either lower extremity. Dictated by: Eric Franz M.D. on 08/20/2016 at 10:28 Approved by: Eric Franz M.D. on 08/20/2016 at 10:28
--- NOTE | 2016-08-20 10:54 | PCM.DIMED ---
Enoch Ngueyn DO 08/20/16 1054: Discharge Instructions Date of Service Aug 20, 2016 Dates of Hospitalization Aug 11, 2016 at 23:40 Discharge Diagnosis Discharge Diagnosis Hypercapnic respiratory failure, COPD exacerbation with underlying pulmonary hypertension Medication Instructions Additional med instructions Start new medications Aspirin 81 daily Prednisone 60 mg daily for 3 more days Verapimil 240 mg daily until seen by primary care physician Continue Medications Home albuterol, Symbicort, Spiriva Home Ceterizine Home Losartan Home Sertraline Stop taking Azithromycin Plavix Diet Discharge Diet: No restrictions Activity Discharge Activity: No restrictions Call your provider Call your provider for: Fever or Chills, Shortness of breath, Bleeding, Chest pain, Excessive diarrhea Patient Instructions Patient Instructions Start new medications Aspirin 81 daily Prednisone 60 mg daily for 3 more days Verapimil 240 mg daily until seen by primary care physician Continue Medications Home albuterol, Symbicort, Spiriva Home Ceterizine Home Losartan Home Sertraline Stop taking Azithromycin Plavix Follow up with pharmacy service associate and primary care physician Home with home health RN. Home physical therapy twice a week. Follow-up plan Follow up with your pharmacy service associate and PCP in 1-2 weeks regarding COPD and pulmonary hypertension and recent hospital stay. Follow-up Provider: Michelle Hurley MD, Robert W MD 08/20/16 1954: Discharge Instructions Attending's Statement The patient was seen and examined together with Dr. Nguyen on 08/20/2016 and I agree with the history, exam and plan as outlined in the note above. . Enoch Nguyen DO Aug 20, 2016 10:54 Adria Watkins MD Aug 20, 2016 19:54
[2016-08-20] MEDS ORDERED: PRED-508 PO (11:11)
[2016-08-20] MEDS ORDERED: VERA240T PO (11:11)
[2016-08-20] MEDS ORDERED: ASPI-973 PO (11:11)
--- NOTE | 2016-08-20 11:23 | PCM.DC.MED ---
Discharge Summary Date of Service Aug 20, 2016 Dates of Hospitalization Date of Hospital Admission Aug 11, 2016 at 23:40 Date of Discharge: Aug 20, 2016 Providers: Admitting Physician: Adria Watkins MD Primary Care Physician: Other,Physician Attending Physician: Adria Watkins MD Diagnosis at Time of Discharge Diagnosis at Time of Discharge Hypercapnic respiratory failure, COPD exacerbation with underlying pulmonary hypertension Procedures XRay, CTs & MRIs Chest xray on 08/11/2016: IMPRESSION: Bibasilar scarring with superimposed patchy airspace opacity suspicious for pneumonia. Continued radiographic surveillance to resolution is recommended. Dictated by: Bruno Henriquez [facility] Interpreted: Rush Felton MD on 08/12/2016 at 9:46 Cardiac Echo Impression Echocardiogram on 08/12/2016" Interpretation Summary The left ventricular cavity is small. Left ventricular systolic function is normal. The ejection fraction is estimated to be 70-75%. There is basal inferior wall akinesis. There is basal inferoseptal wall severe hypokinesis. The right ventricular cavity is small. The right ventricular systolic function is normal. Pulmonary artery pressures cannot be estimated because of the lack of a measurable TR jet velocity. The left atrium grossly appears normal in size. There is mild mitral regurgitation. There is no other significant valvular heart disease. The aortic root is normal size. Brief History The patient is a 65-year-old woman with 40 pack year prior smoking and a past medical history of COPD, hypertension, mild hyperlipidemia with recent admission for hypercapnic respiratory failure is most likely secondary to COPD exacerbation with shortness of breath and wheezing for the last few years. She presented to [facility] with increased shortness of breath and wheezing for a couple of days ago and was found to have hypercapnic respiratory failure with a pH of 7 and a pCO2 in the 90s. She was placed on BiPAP continuously and with this her ABG improved and normalized. She also had evidence of a troponin leak and was worked up for cardiac abnormalities and was eventually sent for a cardiac catheterization and was found to have NO blockage or other notable abnormalities. Cardiac Echo was performed and revealed normal EF and unable to determine pulmonary arterial pressures. She was treated with Azithromycin, prednisone, asa/Plavix and Verapamil along with other COPD medications during her hospital course. She was diagnosed with moderate pulmonary hypertension. She does not have any critical coronary artery disease. Have recommended aggressive risk factor modification and treatment of her underlying lung disease. She sees a drier tender naphthalene at [facility], [place], operated by [facility] in [place] and is advised to follow up closely with her drier tender naphthalene and primary care physician. Hospital Course 65 yo F with past medical history of COPD and HTN admitted with hypercapnic respiratory failure secondary to likely COPD exacerbation. Per discussion with cardiology the patient will have cath done today (08/19/16) and likely be discharged tomorrow. Presumed NSTEMI, present on admission, Resolved. -Troponin on admit .010. on Repeat tropoin .256. Troponin trended down afterward to 0.010. -Cardiac categorization with no abnormal finding. -Initially treated with Heparin and then stopped by cardiology -Echo showed: basal inferior wall akinesis, basal inferoseptal wall severe hypokinesis. -Verapamil 240mg PO will be continued until evaluated by pcp. upon discharge topical nitrates, azithromycin and Plavix will be discontinued. HTN, chronic; Controlled. -Patient blood pressures have been low 100's and into the 90's during cath. -Continue home Losartan 25mg daily Acute on chronic hypercapnic respiratory failure, POA, Resolved. -Secondary to COPD exacerbation -presenting ABG pH 7.024, pCO2 91.6, pO2 134. Repeat ABG showed improvement. -May use home O2 or bipap at night due to oxygen desaturation into mid 80's as needed and prescribed by pulmonology. -Patient requires nocturnal volume ventilation. COPD is primary cause of hypercapnia. -Recommend continued home O2. [place], POA, stable - no known history of kidney disease; Cr resolved and now elevated again likely due to prerenal azotemia - baseline creatinine unknown - To hold lasix till primary care physician visit on Friday. COPD exacerbation, acute, POA, Resolved: -Continue prednisone for a total of 5 days at 60 mg daily. -Levaquin and Azithromycin stopped. -Treated with Albuterol-ipratropium q4HR, albuterol q2HR PRN. -Added Montelukast as an inpatient. Will continue as outpatient. -Start Home O2 Sepsis, acute, POA, resolved: -On admit: WBC >12, HR>90 -likely source pulmonary, community acquired PNA. -Lactic acid corrected to normal on 08/12 after fluid boluses. Elevated glucose, acute, POA; stable -Likely secondary to steroid -hgba1c 5.6% Depression / Anxiety, chronic, POA -continue home sertraline 50mg daily Acetaminophen for mild pain when necessary. Bowel regimen Senna and MiraLAX scheduled and PRN. Zofran when necessary for nausea and vomiting. Dispo: Discharge Today, 08/20/16. Exam Vital Signs (Last) Date Time Temp Pulse Resp B/P Pulse Ox O2 Delivery O2 Flow Rate FiO2 08/20/16 10:24 87 08/20/16 08:37 16 95 Nasal Cannula 2.00 08/20/16 08:00 36.6 121/71 08/18/16 04:41 28 Exam General: No acute distress, well-developed, well-nourished, appropriately interactive HEENT: Normocephalic, atraumatic. External ears without defect. Pupils equal and round. Anicteric sclerae, moist conjunctivae. Neck: Supple with full range of motion. Cardiovascular: Regular rate and rhythm with no murmurs, rubs, or gallops appreciated Pulmonary: Mild wheezing, otherwise clear to auscultation bilaterally. Normal respiratory effort with no use of accessory muscles. Abdomen: Bowel tones present. Soft, nontender, nondistended. Extremities: No clubbing, cyanosis, edema, Skin: Normal temperature, turgor, and texture; no rash, ulcers, or subcutaneous nodules appreciated. Neurological: Cranial nerves II-XII grossly intact. Psychiatric: Normal mood and affect. Alert and oriented to person, place, and time. Test 08/11/16 22:10 08/12/16 05:30 08/12/16 14:00 08/12/16 14:52 Prothrombin Time 10.6sec (8.1-12.5) Prothromb Time International Ratio 0.99ratio Hemoglobin A1c 5.6% (4.8-5.6) Pro-B-Type Natriuretic Peptide 176.0pg/mL (0-301) Hold Fox Top Tube Received (Received) Total Creatine Kinase 88U/L (21-215) Creatine Kinase MB 7.3ng/mL (0.0-5.3) Creatine Kinase MB % 8.3% (0.0-5.0) Urine Color Yellow (YELLOW) Urine Appearance Clear (CLEAR,HAZY) Urine pH 5.0 (5.0-8.0) Urine Specific Morton 1.030 (1.003-1.035) Urine Protein Negativemg/dL (NEG,TRACE) Urine Glucose (UA) Negativemg/dL (NEGATIVE) Urine Ketones Negativemg/dL (NEGATIVE) Urine Occult Blood Negative (NEGATIVE) Urine Nitrite Negative (NEGATIVE) Urine Bilirubin Negative (NEGATIVE) Urine Urobilinogen Normalmg/dL (NORMAL) Urine Leukocyte Esterase Negative (NEGATIVE) Urine RBC 0-2/hpf (0-2) Urine WBC 0-5/hpf (0-5) Urine Epithelial Cells Occasional/hpf (NONE-MOD) Urine Crystals None seen (NONE SEEN) Urine Bacteria Few/hpf (NONE-FEW) Urine Hyaline Casts Occasional/lpf (NONE) Urine Granular Casts None seen (NONE SEEN) Urine Waxy Casts None seen (NONE SEEN) Urine Red Blood Cell Casts None seen (NONE SEEN) Urine White Blood Cell Casts None seen (NONE SEEN) Urine Mucus None seen (None Seen) Urine Trichomonas None seen (NONE SEEN) Urine Yeast None (NONE SEEN) Urinalysis Comment None Urine Culture Reflexed Not indicated Urine Legionella pneumophilia Ag Negative (Negative) Lactic Acid Level 1.9mmol/L (0.4-2.0) Test 08/13/16 08:40 08/16/16 04:20 08/17/16 02:40 08/18/16 03:15 Activated Partial Thromboplast Time 63.4sec (22.8-33.0) Triglycerides Level 86mg/dL (0-149) Cholesterol Level 153mg/dL (100-199) LDL Cholesterol, Calculated 37.800mg/dL (0-99) VLDL Cholesterol 17.200mg/dL HDL Cholesterol 98mg/dL (>39) Cholesterol/HDL Ratio 1.56 (0.0-4.4) Procalcitonin 0.07ng/mL (0.00-0.08) Phosphorus Level 4.4mg/dL (2.5-4.9) Magnesium Level 2.2mg/dL (1.6-2.6) Troponin T 0.010ug/L (0.0-0.011) Test 08/19/16 03:10 08/20/16 04:15 Total Bilirubin 0.3mg/dL (0.0-1.2) Aspartate Amino Transf (AST/SGOT) 16U/L (0-50) Alanine Aminotransferase (ALT/SGPT) 21U/L (0-32) Alkaline Phosphatase 57U/L (25-165) Total Protein 5.7g/dL (6.4-8.4) Albumin 3.6g/dL (3.4-5.0) White Blood Count 12.3th/mm3 (3.8-10.1) Red Blood Count 3.35mil/mm3 (3.90-5.20) Hemoglobin 10.3g/dL (12.0-15.6) Hematocrit 32.3% (35.0-46.0) Mean Corpuscular Volume 96.4fL (81-100) Mean Corpuscular Hemoglobin 30.7pg (27.0-35.0) Mean Corpuscular Hemoglobin Concent 31.9% (32.0-37.0) Red Cell Distribution Width 14.3% (12.3-15.4) Platelet Count 193bil/L (150-400) Neutrophils (%) (Auto) 77.5% (40-74) Lymphocytes (%) (Auto) 13.8% (14-46) Monocytes (%) (Auto) 7.4% (4-12) Eosinophils (%) (Auto) 0% (0-5) Basophils (%) (Auto) 0.1% (0-3) Sodium Level 141mEq/L (134-144) Potassium Level 3.7mEq/L (3.5-5.2) Chloride Level 103mEq/L (97-108) Carbon Dioxide Level 27mmol/L (18-29) Blood Urea Nitrogen 29mg/dL (8-27) Creatinine 0.90mg/dL (0.57-1.00) Estimat Glomerular Filtration Rate 90mL/min (>59) Glucose Level 96mg/dL (60-99) Calcium Level 8.6mg/dL (8.5-10.1) Microbiology Results Blood cultures negative Nasal PCR negative Resp PCR negative Urine S.pneumo antigen negative Discharge Medications Discharge Medications Aspirin (Aspirin) 81 Mg Tablet 81 MG PO DAILY Prescribed by: JAZLYN MERAZ, Budesonide/Formoterol 160-4.5 mcg Inh (Symbicort 160-4.5 mcg Inh) 120 Puff Inhaler 2 PUFF INHALATION DAILY (Reported) Cetirizine (Cetirizine) 5 Mg Tablet 10 MG PO DAILY (Reported) Losartan Potassium (Losartan Potassium) 25 Mg Tablet 25 MG PO DAILY (Reported) Montelukast (Montelukast) 10 Mg Tablet 10 MG PO HS Prescribed by: JAZLYN MERAZ Prednisone (PredniSONE) 20 Mg Tablet 20 MG PO TID Prescribed by: JAZLYN MERAZ Sertraline HCl (Zoloft) 20 Mg/1 Ml Oral.conc 25 MG PO DAILY (Reported) Tiotropium Henderson (Spiriva Respimat) 1.25 Mcg/Actuation Mist.inhal 4 GM IH DAILY (Reported) Verapamil ER (Calan SR) 240 Mg Tablet 240 MG PO DAILY Prescribed by: JAZLYN MERAZ, As needed Albuterol HFA (Proair HFA) 8.5 Gm Hfa.aer.ad 2 PUFFS INHALATION DIRECTED PRN PRN For Shortness of Breath (Reported) Additional med instructions Start New medications. ASA 81. Prednisone 60 mg daily for total of 5 days. (2 doses in the hospital). Verapamil 240 daily until reviewed by PCP. Singulair until reviewed by PCP. Continue Home Medications Albuterol. Symbicort. Cetririzine. Losartan. Sertraline. Spiriva. Stop Azithromycin. Plavix. Followup Plan Disposition: Home with home health RN. Home Physical therapy 2 times per week. Follow-up plan Follow up with Dr. Alexandra with pulmonology in [place] in 1-2 weeks time. Discharge Diet: No restrictions Discharge Activity: No restrictions Follow-up Provider: Michelle Hurley MD Follow-up with PCP in: 2 weeks (1-2 weeks) Time spent Greater than 30 minutes was spent in preparation of discharge with greater than 50% of that time dedicated to patient counseling and coordination of care. . Attending Statement The patient was seen and examined together with Dr. Westbrook on 08/20/2016 and I agree with the history, exam and plan as outlined in the note above. . copies to: Michelle Hurley MD, COREY P DO Aug 20, 2016 11:23 Adria Watkins MD Aug 20, 2016 19:55
[2016-08-20] MEDS ORDERED: MONT10TA23 PO (11:29)
[2016-08-20] MEDS ORDERED: PRE20 PO (11:29)
--- NOTE | 2016-08-20 14:02 | NUR ---
Discharge: VSS, tele SR, no c/o pain, dyspnea, nausea or vomiting. Up ad niraj in room, dyspnea with exertion but recovers easily, RA O2 sats 92-94%. Extensive discussion with pt/family r/t new meds and post-hospital plan. Pt given new prescriptions and care notes for Aspirin, Verapamil, Prednisone, and Montelukast. Pt to follow up with Dr Hurley tomorrow, Dr Purdy's office to call and schedule follow up appointment. Home health RN/PT to call and schedule with pt. Pt/family verbalized understanding, IVs d/c'd intact, all personal belongings with pt, d/c'd home with family providing transport.
--- NOTE | 2016-08-20 16:21 | NUR ---
Social Work Note: Discharge Data& Assessment: Per pt is medically ready to discharge home via POV with [facility] and RN to follow. SW met with pt and pt family at bedside to confirm discharge plan and assess for any unmet needs. Pt family transporting pt home today. Pt and pt family provided with financial assistance application per their request. Pt and pt family denies any other needs. Edi from [facility] obtained F2F and notified of pt discharge. No other discharge needs identified. Plan: Per pt is medically ready to discharge home via POV with [facility] and RN to follow. Pt and pt family denies any other needs. No other discharge needs identified. KATERINA Roberts
== END 2016-08-20 13:40 | disposition home health service (06) | DRG 871 ==
LOC: SED 22:02 → CCU 23:40 → PCC 08-12 08:26
PROVIDERS: ADMIT Internal Medicine; ATTEND Internal Medicine
PROC: 4A033R1 Measurement of Arterial Saturation, Peripheral, Percutaneous Approach (ICD-10-PCS; 2016-08-12)
PROC: 4A023N8 Measurement of Cardiac Sampling and Pressure, Bilateral, Percutaneous Approach (ICD-10-PCS; principal; 2016-08-19)
PROC: B2111ZZ Fluoroscopy of Multiple Coronary Arteries using Low Osmolar Contrast (ICD-10-PCS; 2016-08-19)
DX: A41.9 Sepsis, unspecified organism (principal); I21.4 Non-ST elevation (NSTEMI) myocardial infarction; J96.02 Acute respiratory failure with hypercapnia; J18.9 Pneumonia, unspecified organism; J44.1 Chronic obstructive pulmonary disease with (acute) exacerbation; N17.9 Acute kidney failure, unspecified; I24.8 Other forms of acute ischemic heart disease; J44.0 Chronic obstructive pulmonary disease with (acute) lower respiratory infection; E66.2 Morbid (severe) obesity with alveolar hypoventilation; I10 Essential (primary) hypertension; Z87.891 Personal history of nicotine dependence; R73.9 Hyperglycemia, unspecified; F41.8 Other specified anxiety disorders